=== PATIENT | female | born 1940 | race Caucasian/White ===

== ENCOUNTER → 2023-11-14 11:11 | Outpatient (REF) | payer MEDICARE, SELFPAY | LOC: HWRAD 11:11 | PROVIDERS: ATTENDING PHYSICIAN Nurse Practitioner | DX: R05.1 Acute cough (principal) | CPT/HCPCS: 71046 ==

== ENCOUNTER → 2023-11-20 17:13 | Outpatient (REF) | payer MEDICARE, SELFPAY | LOC: CLAB 17:13 | PROVIDERS: ATTENDING PHYSICIAN Specialist | DX: N39.0 Urinary tract infection, site not specified (principal) | CPT/HCPCS: 87077; 87086; 87186 ==

== ENCOUNTER 2024-05-13 12:39 | Emergency (ER) | payer MEDICARE, SELFPAY ==
[2024-05-13] VITALS (7 sets, daily range): BP systolic 122–144; BP diastolic 65–85; BMI 27.7
[2024-05-13 14:10] LABS: % Basophils 0.2 % (0-2); % Immature Granulocytes 0.8 % (0-0.5); Absolute Immature Granulocytes 0.1 10^3/uL (0-0.05); Absolute Lymphocytes 1.4 10^3/uL (1.2-3.4); Absolute Monocytes 2.1 10^3/uL (0.1-0.6); Absolute Neutrophils 13.6 10^3/uL (1.4-6.5); Hemoglobin 12.7 g/dL (12.0-16.0); Mean Corp Hgb Conc. 35.3 g/dL (33.0-37.0); Mean Corpuscular Hgb 33.9 pg (27.0-31.0); Mean Platelet Volume 10.2 fL (7.4-10.4); Nucleated Red Blood Cells % 0 %; Platelet Count 240 10^3/uL (130-400); Red Blood Cell Count 3.75 10^6/uL (4.20-5.40); Red Cell Dist. Width 13.7 % (11.5-14.5); White Blood Cell Count 17.2 10^3/uL (4.8-10.8)
[2024-05-13 14:38] LABS: ALT (SGPT) 14 U/L (0-35); AST (SGOT) 23 U/L (14-36); Albumin 3.6 g/dl (3.5-5.0); Alkaline Phosphatase 65 U/L (38-126); Blood Urea Nitrogen 12 mg/dl (7-17); Calcium 8.7 mg/dl (8.4-10.2); Carbon Dioxide 25 mmol/L (22-30); Chloride 102 mmol/L (98-107); Estimated Creatinine Clearance 34 ml/min; Glucose 114 mg/dl (70-99); Potassium 3.9 mmol/L (3.5-5.1); Sodium 134 mmol/L (135-145); Total Bilirubin 1.4 mg/dl (0.2-1.3); Total Protein 6.2 g/dl (6.3-8.2); eGFR 55.55
[2024-05-13 14:39] LABS: Lactic Acid 1.5 mmol/L (0.7-2.0)
[2024-05-13 14:46] LABS: Troponin I < 0.012 ng/ml
[2024-05-13 15:03] LABS: Urine Albumin 1+ (Neg - Trace); Urine Bilirubin Negative (Negative); Urine Character Slightly Cloudy (Clear); Urine Color Yellow; Urine Glucose Negative (Negative); Urine Ketone Trace (Negative); Urine Leukocyte 2+ (Negative); Urine Nitrite Positive (Negative); Urine Occult Blood 3+ (Negative); Urine Specific Gravity 1.015 (<1.030); Urine Urobilinogen Negative (Neg - 1+)
[2024-05-13 15:11] LABS: Urine Bacteria Many (Negative); Urine White Cell 40-50 /HPF (0-5)
[2024-05-13 15:26] LABS: COVID-19 Antigen Negative (Negative)
--- NOTE | 2024-05-13 15:37 | ED.GENMED ---
History of Present Illness
General
Chief Complaint: Urinary Symptoms
Source: patient
Exam Limitations: none
Time Seen by Provider: 05/13/24 14:07
Nursing documentation reviewed up to this point in time: agreed with
History of Present Illness
History of Present Illness:
84-year-old female past medical history of previous PE currently on Xarelto, IBS presenting to the emergency department with concerns of initially urinary symptoms 3 to 4 days ago and urinary frequency now feeling body aches nausea and mild
headache. Also felt feverish and chills today. Symptoms feel similar to previous UTIs.
Past History
Past History
ED Past Medical History: Arrthythmia, GERD and Other (Factor IV Leiden deficiency, DVT, PE, ED, diverticulosis, IBS)
ED Past Surgical History: Appendectomy, Gynecological, Orthopedic, Tonsilectomy and Other
Social History
Alcohol: Daily
Review of Systems
Review of Systems
Allergies reviewed?: Yes
All Other Systems: ROS reviewed and negative except as documented in HPI and ROS
Phy Exam
Physical Exam
Physical Exam:
GENERAL: Alert , in no apparent distress
EYE: pupils equal and reactive
NECK: Supple, no significant adenopathy.
ENT: o/p clr, mmm.
CARDIAC: Regular rate and rhythm .
LUNGS: Clear breath sounds bilaterally, no acute respiratory distress, no wheezes/rales/rhonchi
ABDOMEN: Mild pain to the suprapubic region otherwise soft, without focal tenderness, no r/g, no cvat
NEUROLOGICAL: Alert and oriented, no focal neuro deficits
SKIN: Warm and dry, skin intact.
MUSCULOSKELETAL: No edema, well perfused.
PSYCH: Normal and appropriate interaction.
Course
Orders/Labs/Results
Orders:
Orders
05/13/24 13:49
Electrocardiogram (*1) Urgent
Reason for Study: Chest Pain
EKG- Treatment ONCE
05/13/24 13:58
Complete Blood Count/With Diff Urgent
Comprehensive Metabolic Panel Urgent
Lactic Acid Q4H
Comment: ON ICE, CANCEL 2ND ORDER IF FIRST LACTIC ACID LEVEL <2
Troponin I Urgent
05/13/24 14:53
COVID-19 Antigen Urgent
Source: Nasal Swab
Urinalysis Reflex To Culture Urgent
Date Specimen was Collected: 05/13/24
Time Specimen was Collected: 13:38
Urine Microscopic Reflex Cult Urgent
Urine Culture Urgent
TREY Source: U
Specimen Description:
Obtained by: Random
Date Specimen was Collected: 05/13/24
Time Specimen was Collected: 13:38
05/13/24 15:02
Acetaminophen [Tylenol] 1,000 mg PO NOW STA
05/13/24 15:18
CT Abd/pel Without Iv Or Oral Urgent
Comment:
Reason For Exam: flank pain, uti, hx of stones
CefTRIAXone [Rocephin] 2,000 mg IV NOW STA
05/13/24 15:36
Sterile Water [Sterile Water For Injection] 20 ml .ROUTE .STK-MED
Abnormal Lab Results
05/13/24 05/13/24
13:58 14:53
WBC 17.2 H 10^3/uL
(4.8-10.8)
RBC 3.75 L 10^6/uL
(4.20-5.40)
Hct 36.0 L %
(37.0-47.0)
MCH 33.9 H pg
(27.0-31.0)
Abs Immat Gran (auto) 0.1 H 10^3/uL
(0-0.05)
Absolute Neuts (auto) 13.6 H 10^3/uL
(1.4-6.5)
Absolute Monos (auto) 2.1 H 10^3/uL
(0.1-0.6)
Immature Gran % 0.8 H %
(0-0.5)
Neutrophils % 79.0 H %
(42.2-75.2)
Lymphocytes % 8.0 L %
(20.5-51.1)
Monocytes % 12.0 H %
(1.7-9.3)
Sodium 134 L mmol/L
(135-145)
Glucose 114 H mg/dl
(70-99)
Total Bilirubin 1.4 H mg/dl
(0.2-1.3)
Total Protein 6.2 L g/dl
(6.3-8.2)
Urine Ketones Trace A
(Negative)
Ur Occult Blood Reflex 3+ A
(Negative)
Urine Nitrite (Reflex) Positive A
(Negative)
Leukocyte Esterase Rfl 2+ A
(Negative)
Urine RBC 7-10 A /HPF
(0-2)
Urine WBC (Reflex) 40-50 A /HPF
(0-5)
Urine Bacteria (Reflex) Many A
(Negative)
Urine Albumin (Reflex) 1+ A
(Neg - Trace)
05/13/24 13:58
05/13/24 13:58
Vital Signs
Initial and Last Documented VS:
Initial Vital Signs
Temp Pulse Resp BP Pulse Ox
102.9 F H 87 16 135/81 98
05/13/24 12:49 05/13/24 12:49 05/13/24 12:49 05/13/24 12:49 05/13/24 12:49
Last Documented Vital Signs
Temp Pulse Resp BP Pulse Ox
102.9 F H 87 18 144/65 98
05/13/24 12:49 05/13/24 14:30 05/13/24 14:30 05/13/24 14:00 05/13/24 14:30
MDM/Problems Addressed
MDM/Problems Addressed:
84-year-old male presenting to the emergency department today with concerns of initial urinary symptoms with frequency urgency and burning with progression to nausea headache and fever today. On arrival patient febrile to 102.9 otherwise vital
signs are normal. White count of 17.2. Lactic acid is not elevated. Urinalysis consistent with UTI started on IV antibiotics. Relief of patient's fever no fever at this time. Patient claims she is feels much better after treatment she was
watched here for multiple hours. 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 This was explained to the
patient. Initial recommendation for admission to the hospital. Patient claims that she felt much better would like to go home reservations about this were discussed to the patient. She demonstrated understanding of this otherwise at this point
patient is afebrile with normal vital signs no evidence of sepsis at this point claims to have very minimal symptoms at this time patient will be prescribed outpatient antibiotics advised for close follow-up with urology and given strict strict
return precautions for any worsening.
*Critical Care Note
Total Time (30-74mins, 75-104mins- exclusive of procedures): Not Applicable
ED Attending Note
-
Portions of this chart may have been created with voice recognition software.� Occasional wrong word or��sound alike� substitutions may have occurred due to the inherent limitations of voice recognition software.
Discharge Plan
Departure
Patient Disposition: Home (Routine Discharge)
Date of Disposition: 05/13/24
Time of Disposition: 17:45
Patient with high blood pressure during this ER visit?: No
Condition: Good
Covid-19: Not Applicable
Discharge Problem:
Urinary tract infection
Instructions: Urinary Tract Infection, Adult (DC)
Prescriptions:
New
cefpodoxime 200 mg tablet
200 mg PO BID 14 Days Qty: 28 0RF
No Action
amiodarone 200 mg Tablet
200 mg PO DAILY
metoprolol succinate [Toprol XL] 50 mg Tablet Extended Release 24 Hr
50 mg PO DAILY
Xarelto 20 mg Tablet
20 mg PO Q48H@1800
Referrals:
Martha Guthrie CRNP [Family Provider] -
Activity Restrictions/Additional Instructions:
You came to the emergency department today and were found to have a urinary tract infection. Here you had an elevated white count and you had some chronic findings on your CT scan. You were given an IV dose of antibiotics. Please continue taking
the antibiotics prescribed twice daily over the next 14 days and follow-up with urology within 1 week. Please immediately return to the emergency department for any worsening or progressive symptoms.
Interventions
Interventions:
*Risk Screen - Suicide Last Done: 05/13/24 12:49
*General Assessment Last Done: 05/13/24 12:49
*Neglect/Abuse Screening Last Done: 05/13/24 12:49
ED- Fall Risk Assessment Last Done: 05/13/24 14:04
*ED COVID-19 Vaccine History Last Done: 05/13/24 13:47
ED-Female Genitourinary Assessment Last Done: 05/13/24 14:04
Discharge Date and Time
Print Language: ROMANSH
[2024-05-13] MEDS: ROCEPHIN 2000 MG IV (15:38)
[2024-05-13] MEDS: TYLENOL 1000 MG PO (15:38)
== END 2024-05-13 18:34 | disposition home or self-care (01) ==
LOC: EMR 12:39
PROVIDERS: Physician Assistant; Student in an Organized Health Care Education/Training Program; EMERGENCY PHYSICIAN Emergency Medicine; FAMILY PHYSICIAN Nurse Practitioner
DX: N39.0 Urinary tract infection, site not specified (principal); R11.0 Nausea; R35.0 Frequency of micturition; K21.9 Gastro-esophageal reflux disease without esophagitis; K58.9 Irritable bowel syndrome, unspecified; Z79.01 Long term (current) use of anticoagulants; Z86.718 Personal history of other venous thrombosis and embolism; Z87.440 Personal history of urinary (tract) infections; Z90.49 Acquired absence of other specified parts of digestive tract
CPT/HCPCS: 99284; 96374; 74176; 80053; 81003; 81015; 83605; 84484; 85025; 87077; 87086; 87186; 87811; 93005

== ENCOUNTER → 2024-05-26 10:04 | Outpatient (REF) | payer MEDICARE, SELFPAY | LOC: HWRAD 10:04 | PROVIDERS: ATTENDING PHYSICIAN Nurse Practitioner | DX: R06.02 Shortness of breath (principal) | CPT/HCPCS: 71046 ==

== ENCOUNTER 2024-08-08 09:58 | Emergency (ER) | payer MEDICARE, SELFPAY ==
[2024-08-08 10:26] VITALS: BP 200/93
--- NOTE | 2024-08-12 12:30 | ED.GENMED ---
History of Present Illness
General
Chief Complaint: Musculo-Skeletal Complaint
Time Seen by Provider: 08/08/24 11:58
History of Present Illness
History of Present Illness:
TIME OF INITIAL ENCOUNTER: 10:30 AM, August 08, 2024
HPI:
The patient presents to the ER with rather severe left shoulder pain. She states that she has 'no rotator cuff' on the left side. It was recommended that she have a reverse shoulder surgery but she had declined. She thought that maybe she
dislocated her left shoulder.
EXAM:
GENERAL: Well appearing but in mild distress related to pain at the left shoulder, blood pressure noted to be elevated however she is asymptomatic
HEENT: Moist oral mucosa
NEUROLOGIC: Excellent strength all extremities, no obvious coordination deficits
PSYCHIATRIC: Appropriate mental status, normal insight and judgement
EXTREMITIES: There is some decreased active range of motion at the left shoulder however she is able to abduct at the left shoulder, there is no clinical evidence for dislocation, there is no significant bony tenderness
SKIN: No rash, no lesions
NUMBER AND COMPLEXITY OF PROBLEMS ADDRESSED AT THE ENCOUNTER
� Chronic conditions affecting care: DVT/PE, GERD
� Acute Exacerbation and/or Progression of Chronic Illness: This is an acute problem but is had rotator cuff injury in the past
� Differential Diagnosis includes: Rotator cuff pathology, shoulder fracture very unlikely, shoulder dislocation very unlikely
AMOUNT AND/OR COMPLEXITY OF DATA TO BE REVIEWED AND ANALYZED
� I performed an independent evaluation of and my interpretation is:
EKG:
CT:
X-rays: X-ray of the left shoulder reviewed and I agree with radiologist interpretation that there is no fracture or dislocation
Laboratory Studies:
Other:
� Review of other/old records: The patient was seen here in 2019 with a head injury
� Clinical information was obtained by an independent historian: Spoke to at bedside
� Prescriptions/Medications Considered but not given:
� Further testing considered but not performed:
RISK OF COMPLICATIONS AND/OR MORBIDITY OR MORTALITY OF PATIENT MANAGEMENT
� Social determinants of health affecting care: Lives at home
� Discussion with other providers:
� Escalation of care including admission/observation vs risk of discharge considered: X-rays reviewed. No significant acute abnormality. She is to follow-up with orthopedics.
ANY OTHER UPDATES:
Past History
Past History
ED Past Medical History: Arrthythmia, GERD and Other (Factor IV Leiden deficiency, DVT, PE, ED, diverticulosis, IBS)
ED Past Surgical History: Appendectomy, Gynecological, Orthopedic, Tonsilectomy and Other
Social History
Tobacco: Non-smoker
Alcohol: Daily
Drug: None
Living: alone
Employment: Retired
Phy Exam
Physical Exam
Physical Exam:
See HPI
Course
Orders/Labs/Results
Orders:
Orders
08/08/24 10:23
Shoulder, Left, Trauma CR [CR Shoulder, Trauma - Left] Urgent
Comment:
Reason For Exam: pain
08/08/24 12:25
Sling Left-Treatment ONCE
Vital Signs
Initial and Last Documented VS:
Initial Vital Signs
Temp Pulse Resp Pulse Ox
98.4 F 99 18 98
08/08/24 10:20 08/08/24 10:20 08/08/24 10:20 08/08/24 10:20
Last Documented Vital Signs
Temp Pulse Resp BP Pulse Ox
98.4 F 99 18 200/93 98
08/08/24 10:20 08/08/24 10:20 08/08/24 10:20 08/08/24 10:26 08/08/24 10:20
*Critical Care Note
Total Time (30-74mins, 75-104mins- exclusive of procedures): Not Applicable
ED Attending Note
-
Portions of this chart may have been created with voice recognition software.� Occasional wrong word or��sound alike� substitutions may have occurred due to the inherent limitations of voice recognition software.
Discharge Plan
Departure
Patient Disposition: Home (Routine Discharge)
Date of Disposition: 08/08/24
Time of Disposition: 12:24
Patient with high blood pressure during this ER visit?: Yes
Discharge Problem:
Rotator cuff arthropathy of left shoulder
Instructions: Rotator Cuff Tendinitis Strengthening Exercises, BLOOD PRESSURE
Prescriptions:
No Action
amiodarone 200 mg Tablet
200 mg PO DAILY
metoprolol succinate [Toprol XL] 50 mg Tablet Extended Release 24 Hr
50 mg PO DAILY
Xarelto 20 mg Tablet
20 mg PO Q48H@1800
cefpodoxime 200 mg tablet
200 mg PO BID 14 Days Qty: 28 0RF
enalapril maleate [Vasotec] 5 mg tablet
5 mg PO DAILY Qty: 30 2RF
Referrals:
Sebastian Hernandez MD [Active] - Follow up in 2-3 days
Martha Guthrie CRNP [Family Provider] -
Activity Restrictions/Additional Instructions:
Continue Tylenol for pain. Follow-up with Dr. Hernandez for further recommendations. Use sling for pain as well. There is no sign of dislocation and no sign of fracture.
Interventions
Interventions:
*Risk Screen - Suicide Last Done: 08/08/24 10:20
*General Assessment Last Done: 08/08/24 10:20
*Neglect/Abuse Screening Last Done: 08/08/24 10:20
*Nursing Disposition Last Done: 08/08/24 12:53
ED-Musculoskeletal Assessment Last Done: 08/08/24 11:59
Discharge Date and Time
Discharge Date/Time: 08/08/24 12:54
Print Language: IRISH
== END 2024-08-08 12:54 | disposition home or self-care (01) ==
LOC: EMR 09:58
PROVIDERS: EMERGENCY PHYSICIAN Emergency Medicine; FAMILY PHYSICIAN Nurse Practitioner
DX: M12.512 Traumatic arthropathy, left shoulder (principal); K21.9 Gastro-esophageal reflux disease without esophagitis; D68.9 Coagulation defect, unspecified; K58.9 Irritable bowel syndrome, unspecified; Z86.718 Personal history of other venous thrombosis and embolism; Z90.49 Acquired absence of other specified parts of digestive tract
CPT/HCPCS: 99283; 73030

== ENCOUNTER 2024-08-10 05:38 | Emergency (ER) | payer MEDICARE, SELFPAY ==
[2024-08-10] VITALS (7 sets, daily range): BP systolic 150–173; BP diastolic 65–95
--- NOTE | 2024-08-10 06:40 | ED.GENMED ---
Addendum entered and electronically signed by Rivera Leonard DO 08/10/24 09:46:
Update labs noted CTs noted proBNP noted patient lying flat asymptomatic blood pressure is 170s systolic over 80s heart rate in the 60s she is on amiodarone 200 metoprolol 50 will not increase either those give a dose hydralazine here and then
discharged prescription for lisinopril 5
Original Note:
History of Present Illness
General
Chief Complaint: Blood Pressure Problem
Source: patient, records and family
Exam Limitations: none
Time Seen by Provider: 08/10/24 06:08
Nursing documentation reviewed up to this point in time: agreed with except (Patient denies headache to me he told triage nurse that she had a headache)
History of Present Illness
History of Present Illness:
84-year-old female multiple chronic medical conditions, most notably A-fib on metoprolol amiodarone and Xarelto seen in the ER a week or so ago for left shoulder pain thought to be related to lack of a rotator cuff there is crunching in her
shoulder, that time her blood pressure was elevated, told to follow-up with her PCP she did over the phone took her blood pressure frequently's morning was 210/115 patient states she had no pain came to the ER for evaluation here blood pressures
improved does have pain with range of motion of her shoulder in talking to her she had a fall few weeks ago did strike her head with bruising, had some neck pain which is chronic for her she had a C2 fracture in 2014 seen at [place] by Dr. Doe, she
took her medications yesterday afternoon around 5 PM, she says some of lower extremity edema and shortness of breath, states she gets short of breath when she walks denies any chest pain
Past History
Past History
ED Past Medical History: Arrthythmia, GERD and Other (Factor IV Leiden deficiency, DVT, PE, ED, diverticulosis, IBS)
ED Past Surgical History: Appendectomy, Gynecological, Orthopedic, Tonsilectomy and Other
Social History
Tobacco: Non-smoker
Alcohol: Daily
Drug: None
Living: alone
Employment: Retired
Review of Systems
Review of Systems
All Other Systems: Not applicable
Constitutional: Denies fever or fatigue
EENT: Reports no symptoms
Respiratory: Reports trouble breathing; Denies cough
Cardiac: Reports no symptoms
ABD/GI: Reports no symptoms
Musculoskeletal: Reports joint pain
Skin: Reports no symptoms
Neurological: Reports headache (Denies to me but told triage nurse she has a headache)
Endocrine: Reports no symptoms
Hematologic/Lymphatic: Reports no symptoms
Phy Exam
Physical Exam
Physical Exam:
Physical Exam
General: 84-year-old female nontoxic
Neck: Mild paraspinal tenderness
Heart: Regular
Lungs: Faint bibasilar prior
Abdomen: Nontender
Neuro: alert and oriented. no focal neurological deficits
Skin: no rash
Psychiatric: cooperative
Extremities: Trace edema no calf pain positive pain with range of motion of the left shoulder
Course
Orders/Labs/Results
Orders:
Orders
08/10/24 06:35
Electrocardiogram (*1) Urgent
Reason for Study: Other
Other Reason for Exam: trauma
CT Cervical Spine W/o Iv Contr Urgent
Comment:
Reason For Exam: fall prior c2 fx
CT Head W/o Iv Contrast Urgent
Comment:
Reason For Exam: fall headache xartelto
Cardiac Monitoring- Treatment ONCE
EKG- Treatment ONCE
Complete Blood Count/With Diff Urgent
Comprehensive Metabolic Panel Urgent
08/10/24 06:36
Troponin I Urgent
Acetaminophen [Tylenol] 650 mg PO NOW STA
CR Chest - 2 Views Urgent
Comment:
Reason For Exam: sob
Vital Signs
Initial and Last Documented VS:
Initial Vital Signs
Temp Pulse Resp BP Pulse Ox
97.8 F 68 20 150/94 99
08/10/24 05:42 08/10/24 05:42 08/10/24 05:42 08/10/24 05:42 08/10/24 05:42
Last Documented Vital Signs
Temp Pulse Resp BP Pulse Ox
97.8 F 68 20 156/80 98
08/10/24 05:42 08/10/24 05:42 08/10/24 05:42 08/10/24 06:27 08/10/24 06:27
MDM/Problems Addressed
Differential Diagnosis Includes:
Primary pain from rotator cuff injury accelerated hypertension, heart failure, subacute presentation after fall close head injury prior C2 fracture
MDM/Problems Addressed:
Elevated blood pressure shoulder pain anticoagulated trauma
Chronic conditions affecting care: HTN, Arrhythmia and Other (C-spine injury)
Acute Exacerbation and/or Progression of Chronic Illness: HTN, Arrhythmia and Other (C-spine injury)
*Radiology
Radiology exam reviewed: radiology read reviewed
*Pulse Oximetry
Patient hypoxic: no
*EKG
Interpreted by ED Provider?: Yes
Interpretation: abnormal
Comparison EKG: no comparison EKG present
Heart Rate: 78
Rate: normal
Rhythm: sinus
Ischemia: non-specific ST changes
*Agency Development Manager Interpretation
Rate: normal
Interpretation: normal
Heart Rate: 78
Rhythm: sinus
*Critical Care Note
Total Time (30-74mins, 75-104mins- exclusive of procedures): Not Applicable
Data Reviewed
Source: patient
ED Attending Note
-
Portions of this chart may have been created with voice recognition software.� Occasional wrong word or��sound alike� substitutions may have occurred due to the inherent limitations of voice recognition software.
Discharge Plan
Departure
Prescriptions:
No Action
amiodarone 200 mg Tablet
200 mg PO DAILY
metoprolol succinate [Toprol XL] 50 mg Tablet Extended Release 24 Hr
50 mg PO DAILY
Xarelto 20 mg Tablet
20 mg PO Q48H@1800
cefpodoxime 200 mg tablet
200 mg PO BID 14 Days Qty: 28 0RF
Referrals:
Martha Guthrie CRNP [Family Provider] -
Interventions
Interventions:
*Risk Screen - Suicide Last Done: 08/10/24 05:42
*General Assessment Last Done: 08/10/24 05:42
*Neglect/Abuse Screening Last Done: 08/10/24 05:42
ED- Fall Risk Assessment Last Done: 08/10/24 05:42
*ED COVID-19 Vaccine History Last Done: 08/10/24 05:42
ED- Cardiac Assessment Last Done: 08/10/24 06:27
ED- Neurological Assessment Last Done: 08/10/24 06:27
ED- Pulmonary Assessment Last Done: 08/10/24 06:27
Discharge Date and Time
Print Language: GIBRALTARIAN
[2024-08-10] MEDS: TYLENOL 650 MG PO (07:29)
[2024-08-10 07:50] LABS: % Basophils 0.5 % (0-2); % Immature Granulocytes 0.5 % (0-0.5); % Monocytes 9.9 % (1.7-9.3); % Neutrophils 64.1 % (42.2-75.2); Absolute Eosinophils 0.1 10^3/uL (0-0.7); Absolute Lymphocytes 1.9 10^3/uL (1.2-3.4); Absolute Monocytes 0.8 10^3/uL (0.1-0.6); Absolute Neutrophils 5.2 10^3/uL (1.4-6.5); Hematocrit 37.9 % (37.0-47.0); Hemoglobin 13.1 g/dL (12.0-16.0); Mean Corp Hgb Conc. 34.6 g/dL (33.0-37.0); Mean Corpuscular Hgb 32.8 pg (27.0-31.0); Mean Platelet Volume 10.5 fL (7.4-10.4); Nucleated Red Blood Cells % 0 %; Platelet Count 233 10^3/uL (130-400); Red Blood Cell Count 3.99 10^6/uL (4.20-5.40); Red Cell Dist. Width 13.6 % (11.5-14.5); White Blood Cell Count 8.1 10^3/uL (4.8-10.8)
[2024-08-10 08:10] LABS: Blood Urea Nitrogen 16 mg/dl (7-17); Calcium 8.9 mg/dl (8.4-10.2); Carbon Dioxide 25 mmol/L (22-30); Chloride 107 mmol/L (98-107); Glucose 91 mg/dl (70-99); Sodium 141 mmol/L (135-145); eGFR > 60.00
[2024-08-10 08:17] LABS: Troponin I < 0.012 ng/ml
[2024-08-10 09:20] LABS: NT-proBNP 1620 pg/ml
--- NOTE | 2024-08-10 09:24 | ED.GENMED ---
History of Present Illness
General
Chief Complaint: Blood Pressure Problem
Time Seen by Provider: 08/10/24 06:08
Past History
Past History
ED Past Medical History: Arrthythmia, GERD and Other (Factor IV Leiden deficiency, DVT, PE, ED, diverticulosis, IBS)
ED Past Surgical History: Appendectomy, Gynecological, Orthopedic, Tonsilectomy and Other
Social History
Tobacco: Non-smoker
Alcohol: Daily
Drug: None
Living: alone
Employment: Retired
Course
Orders/Labs/Results
Orders:
Orders
08/10/24 06:35
Electrocardiogram (*1) Urgent
Reason for Study: Other
Other Reason for Exam: trauma
CT Cervical Spine W/o Iv Contr Urgent
Comment:
Reason For Exam: fall prior c2 fx
CT Head W/o Iv Contrast Urgent
Comment:
Reason For Exam: fall headache xartelto
Cardiac Monitoring- Treatment ONCE
EKG- Treatment ONCE
08/10/24 06:36
Acetaminophen [Tylenol] 650 mg PO NOW STA
CR Chest - 2 Views Urgent
Comment:
Reason For Exam: sob
08/10/24 07:32
Basic Metabolic Panel Urgent
Complete Blood Count/With Diff Urgent
NT-proBNP Urgent
Comment: ADD ON
Troponin I Urgent
08/10/24 08:15
Add On- LAB Urgent
Tests Added?: pBNP
08/10/24 08:37
Add On- LAB Urgent
Tests Added?: pBNP
08/10/24 09:42
HydrALAZINE [Apresoline] 5 mg IV NOW STA
Abnormal Lab Results
08/10/24
07:32
RBC 3.99 L 10^6/uL
(4.20-5.40)
MCH 32.8 H pg
(27.0-31.0)
MPV 10.5 H fL
(7.4-10.4)
Absolute Monos (auto) 0.8 H 10^3/uL
(0.1-0.6)
Monocytes % 9.9 H %
(1.7-9.3)
08/10/24 07:32
08/10/24 07:32
Vital Signs
Initial and Last Documented VS:
Initial Vital Signs
Temp Pulse Resp BP Pulse Ox
97.8 F 68 20 150/94 99
08/10/24 05:42 08/10/24 05:42 08/10/24 05:42 08/10/24 05:42 08/10/24 05:42
Last Documented Vital Signs
Temp Pulse Resp BP Pulse Ox
97.8 F 67 16 173/78 96
08/10/24 05:42 08/10/24 09:00 08/10/24 09:00 08/10/24 09:00 08/10/24 09:00
Update Note
Update Note:
924 update chest x-ray noted formal report pending proBNP noted, blood pressure noted
Update systolic blood pressure still up a bit patient appears comfortable heart rate in the 60s to 70s will not push up her beta-christiano nor her amnio will add a low-dose of an CARO
ED Attending Note
-
Portions of this chart may have been created with voice recognition software.� Occasional wrong word or��sound alike� substitutions may have occurred due to the inherent limitations of voice recognition software.
Discharge Plan
Departure
Patient Disposition: Home (Routine Discharge)
Date of Disposition: 08/10/24
Time of Disposition: 09:43
Patient with high blood pressure during this ER visit?: No
Condition: Good
Discharge Problem:
BP (high blood pressure)
Instructions: Chest Pain DCA Follow Up, *DCA Heart Failure Instructions, BLOOD PRESSURE
Prescriptions:
New
enalapril maleate [Vasotec] 5 mg tablet
5 mg PO DAILY Qty: 30 2RF
No Action
amiodarone 200 mg Tablet
200 mg PO DAILY
metoprolol succinate [Toprol XL] 50 mg Tablet Extended Release 24 Hr
50 mg PO DAILY
Xarelto 20 mg Tablet
20 mg PO Q48H@1800
cefpodoxime 200 mg tablet
200 mg PO BID 14 Days Qty: 28 0RF
Referrals:
Kai Brito MD [Active] - Next open appointment
Martha Guthrie CRNP [Family Provider] -
Activity Restrictions/Additional Instructions:
Follow-up with your rn production, start enalapril 5 mg a day
Interventions
Interventions:
*Risk Screen - Suicide Last Done: 08/10/24 05:42
*General Assessment Last Done: 08/10/24 05:42
*Neglect/Abuse Screening Last Done: 08/10/24 05:42
ED- Fall Risk Assessment Last Done: 08/10/24 05:42
*ED COVID-19 Vaccine History Last Done: 08/10/24 05:42
ED- Cardiac Assessment Last Done: 08/10/24 06:27
ED- Neurological Assessment Last Done: 08/10/24 06:27
ED- Pulmonary Assessment Last Done: 08/10/24 06:27
Discharge Date and Time
Print Language: PASHTO
[2024-08-10] MEDS: APRESOLINE 5 MG IV (10:14)
== END 2024-08-10 11:26 | disposition home or self-care (01) ==
LOC: EMR 05:38
PROVIDERS: EMERGENCY PHYSICIAN Emergency Medicine; FAMILY PHYSICIAN Nurse Practitioner
DX: I10 Essential (primary) hypertension (principal); I48.91 Unspecified atrial fibrillation; K21.9 Gastro-esophageal reflux disease without esophagitis; Z86.718 Personal history of other venous thrombosis and embolism; Z90.49 Acquired absence of other specified parts of digestive tract; Z79.899 Other long term (current) drug therapy
CPT/HCPCS: 96374; 99285; 70450; 71046; 72125; 80048; 83880; 84484; 85025; 93005

== ENCOUNTER 2024-10-08 11:49 | Emergency (ER) | payer MEDICARE, SELFPAY ==
[2024-10-08] VITALS (8 sets, daily range): BP systolic 158–190; BP diastolic 73–120; BMI 24.1
--- NOTE | 2024-10-08 12:10 | ED.GENMED ---
ED Provider Triage
<Tony Yin PA-C - Last Filed: 10/08/24 12:12>
-
Patient seen by provider in Triage?: Seen in Triage
84 yo female presents for evaluation of intractable shaking with nausea and h/a beginning this AM. Denies CP, coughing, vomiting or diarrhea. Denies lower urinary tract voiding symptoms. No new meds.
Visibly tremulous at rest. No change with intention. No focality. Looks well overall.
Check infectious workup although these do not look like rigors
History of Present Illness
<Tony Yin PA-C - Last Filed: 10/08/24 12:12>
General
Chief Complaint: Blood Pressure Problem
Time Seen by Provider: 10/08/24 17:11
<Christina Virk PA-C - Last Filed: 10/08/24 22:22>
General
Source: patient
Exam Limitations: none
Nursing documentation reviewed up to this point in time: agreed with
History of Present Illness
History of Present Illness:
84 y/o M with h/o factor v leiden, dvt/pe on eliquis
htn with inc in her BP med just 2 days ago losartan from 50 to 100 for elevated bp 180/90s at home
here after she says that she started having shaking uncontrollably at 11 am that didn't feel like chills
it was her whole body
she arrived and still had symptoms for a 2 hours while waiting and then they stopped
she now has a minimal headache
she reported to triage she had nausea but not to me
she has missed some bp meds today like toprol and amio for her afib
she has not had sore throat, cough, runny nose, diarrhea, uti sxs, abdominal pain, back pain, weknss, numbness, vision changes, enck pain, chest pain
no recent trave
she did have cat scratch L arm that is healing and not red or tender
pt tells me she doesn't drink alcohol
Past History
<Tony Yin PA-C - Last Filed: 10/08/24 12:12>
Past History
ED Past Medical History: Arrthythmia, GERD and Other (Factor IV Leiden deficiency, DVT, PE, ED, diverticulosis, IBS)
ED Past Surgical History: Appendectomy, Gynecological, Orthopedic, Tonsilectomy and Other
Social History
Tobacco: Non-smoker
Alcohol: Daily
Drug: None
Living: alone
Employment: Retired
Review of Systems
<Christina Virk PA-C - Last Filed: 10/08/24 22:22>
Review of Systems
Allergies reviewed?: Yes
All Other Systems: Not applicable
Phy Exam
<Christina Virk PA-C - Last Filed: 10/08/24 22:22>
Physical Exam
Physical Exam:
GENERAL: Alert , in no apparent distress, no shaking chills
HEAD: NCAT
EYE: pupils equal and reactive, no nystagmus, no photophobia
NECK: Supple,full rom, nontender
ENT: o/p clr, mmm.
CARDIAC: Regular rate and rhythm . no edema
LUNGS: Clear breath sounds bilaterally, no acute respiratory distress, no wheezes/rales/rhonchi
ABDOMEN: Soft, without focal tenderness, no r/g, no cvat
NEUROLOGICAL: Alert and orientedx 4, cn intact, no facial asymmetry, 5/5 strength in UE/LE, sensation intact, romberg neg, ambulates without assistance slightly wider gait; no tremor, neg pronator drift
SKIN: Warm and dry, skin intact.
SCAB L FOREARM MIMIAL SURROUDING REDNESS, 1 CM, NO TENDENRESS, NO STREAKING ASHLEY, NO LYMPHANGITIS
MUSCULOSKELETAL: No edema, well perfused.
PSYCH: Normal and appropriate interaction.
RECTAL TEMP 98.2
Course
<Tony Yin PA-C - Last Filed: 10/08/24 12:12>
Orders/Labs/Results
Orders:
Orders
10/08/24 12:28
COVID-19 Antigen Urgent
Source: Nasal Swab
Complete Blood Count/With Diff Urgent
Comprehensive Metabolic Panel Urgent
Creatine Phosphokinase Urgent
Lactic Acid Urgent
TSH Reflex To Free T4 Urgent
Comment: ADDON
Blood Culture Urgent
TREY Source: Blood/Venous
Specimen Description:
Influenza A+B Rapid Molecular Urgent
TREY Source: Nasal Swab
Specimen Description:
10/08/24 17:03
IV Insert/Care/Rem.- Treatment PRN
10/08/24 17:33
Blood Culture Urgent
TREY Source: Blood/Venous
Specimen Description:
10/08/24 18:09
0.9% Sodium Chloride 1000 ml [Nss] 1,000 ml IV BOLUS
Metoprolol Xl [Toprol Xl] 50 mg PO NOW STA
10/08/24 18:10
CR Chest - 2 Views Urgent
Comment:
Reason For Exam: RIGORS
10/08/24 18:22
Urinalysis Reflex To Culture Urgent
Date Specimen was Collected: 10/08/24
Time Specimen was Collected: 18:17
Urine Microscopic Reflex Cult Urgent
10/08/24 18:33
Add On- LAB Urgent
Tests Added?: cpk, tsh reflex t4
10/08/24 19:41
Lactic Acid Urgent
Abnormal Lab Results
10/08/24 10/08/24 10/08/24
12:28 18:22 19:41
MCV 99.1 H fL
(81.0-99.0)
MCH 33.5 H pg
(27.0-31.0)
Abs Immat Gran (auto) 0.1 H 10^3/uL
(0-0.05)
Absolute Neuts (auto) 6.6 H 10^3/uL
(1.4-6.5)
Immature Gran % 0.6 H %
(0-0.5)
Neutrophils % 76.8 H %
(42.2-75.2)
Lymphocytes % 14.6 L %
(20.5-51.1)
Carbon Dioxide 21 L mmol/L
(22-30)
Glucose 102 H mg/dl
(70-99)
Lactic Acid 2.9 H mmol/L 2.1 H mmol/L
(0.7-2.0) (0.7-2.0)
AST 38 H U/L
(14-36)
Urine Ketones 3+ A
(Negative)
Ur Occult Blood Reflex 1+ A
(Negative)
10/08/24 12:28
10/08/24 12:28
Vital Signs
Initial and Last Documented VS:
Initial Vital Signs
Temp Pulse Resp BP Pulse Ox
97.5 F 93 20 184/120 98
10/08/24 12:02 10/08/24 12:02 10/08/24 12:02 10/08/24 12:02 10/08/24 12:02
Last Documented Vital Signs
Temp Pulse Resp BP Pulse Ox
98.5 F 75 13 175/91 97
10/08/24 17:44 10/08/24 20:45 10/08/24 20:45 10/08/24 20:05 10/08/24 20:45
<Christina Virk PA-C - Last Filed: 10/08/24 22:22>
Orders/Labs/Results
Orders:
Orders
10/08/24 12:28
COVID-19 Antigen Urgent
Source: Nasal Swab
Complete Blood Count/With Diff Urgent
Comprehensive Metabolic Panel Urgent
Creatine Phosphokinase Urgent
Lactic Acid Urgent
TSH Reflex To Free T4 Urgent
Comment: ADDON
Blood Culture Urgent
TREY Source: Blood/Venous
Specimen Description:
Influenza A+B Rapid Molecular Urgent
TREY Source: Nasal Swab
Specimen Description:
10/08/24 17:03
IV Insert/Care/Rem.- Treatment PRN
10/08/24 17:33
Blood Culture Urgent
TREY Source: Blood/Venous
Specimen Description:
10/08/24 18:09
0.9% Sodium Chloride 1000 ml [Nss] 1,000 ml IV BOLUS
Metoprolol Xl [Toprol Xl] 50 mg PO NOW STA
10/08/24 18:10
CR Chest - 2 Views Urgent
Comment:
Reason For Exam: RIGORS
10/08/24 18:22
Urinalysis Reflex To Culture Urgent
Date Specimen was Collected: 10/08/24
Time Specimen was Collected: 18:17
Urine Microscopic Reflex Cult Urgent
10/08/24 18:33
Add On- LAB Urgent
Tests Added?: cpk, tsh reflex t4
10/08/24 19:41
Lactic Acid Urgent
Abnormal Lab Results
10/08/24 10/08/24 10/08/24
12:28 18:22 19:41
MCV 99.1 H fL
(81.0-99.0)
MCH 33.5 H pg
(27.0-31.0)
Abs Immat Gran (auto) 0.1 H 10^3/uL
(0-0.05)
Absolute Neuts (auto) 6.6 H 10^3/uL
(1.4-6.5)
Immature Gran % 0.6 H %
(0-0.5)
Neutrophils % 76.8 H %
(42.2-75.2)
Lymphocytes % 14.6 L %
(20.5-51.1)
Carbon Dioxide 21 L mmol/L
(22-30)
Glucose 102 H mg/dl
(70-99)
Lactic Acid 2.9 H mmol/L 2.1 H mmol/L
(0.7-2.0) (0.7-2.0)
AST 38 H U/L
(14-36)
Urine Ketones 3+ A
(Negative)
Ur Occult Blood Reflex 1+ A
(Negative)
10/08/24 12:28
10/08/24 12:28
Vital Signs
Initial and Last Documented VS:
Initial Vital Signs
Temp Pulse Resp BP Pulse Ox
97.5 F 93 20 184/120 98
10/08/24 12:02 10/08/24 12:02 10/08/24 12:02 10/08/24 12:02 10/08/24 12:02
Last Documented Vital Signs
Temp Pulse Resp BP Pulse Ox
98.5 F 75 13 175/91 97
10/08/24 17:44 10/08/24 20:45 10/08/24 20:45 10/08/24 20:05 10/08/24 20:45
<Mary Maxwell MD - Last Filed: 10/08/24 22:27>
Orders/Labs/Results
Orders:
Orders
10/08/24 12:28
COVID-19 Antigen Urgent
Source: Nasal Swab
Complete Blood Count/With Diff Urgent
Comprehensive Metabolic Panel Urgent
Creatine Phosphokinase Urgent
Lactic Acid Urgent
TSH Reflex To Free T4 Urgent
Comment: ADDON
Blood Culture Urgent
TREY Source: Blood/Venous
Specimen Description:
Influenza A+B Rapid Molecular Urgent
TREY Source: Nasal Swab
Specimen Description:
01/03/25 17:03
IV Insert/Care/Rem.- Treatment PRN
10/08/24 17:33
Blood Culture Urgent
TREY Source: Blood/Venous
Specimen Description:
10/08/24 18:09
0.9% Sodium Chloride 1000 ml [Nss] 1,000 ml IV BOLUS
Metoprolol Xl [Toprol Xl] 50 mg PO NOW STA
10/08/24 18:10
CR Chest - 2 Views Urgent
Comment:
Reason For Exam: RIGORS
10/08/24 18:22
Urinalysis Reflex To Culture Urgent
Date Specimen was Collected: 10/08/24
Time Specimen was Collected: 18:17
Urine Microscopic Reflex Cult Urgent
10/08/24 18:33
Add On- LAB Urgent
Tests Added?: cpk, tsh reflex t4
10/08/24 19:41
Lactic Acid Urgent
Abnormal Lab Results
10/08/24 10/08/24 10/08/24
12:28 18:22 19:41
MCV 99.1 H fL
(81.0-99.0)
MCH 33.5 H pg
(27.0-31.0)
Abs Immat Gran (auto) 0.1 H 10^3/uL
(0-0.05)
Absolute Neuts (auto) 6.6 H 10^3/uL
(1.4-6.5)
Immature Gran % 0.6 H %
(0-0.5)
Neutrophils % 76.8 H %
(42.2-75.2)
Lymphocytes % 14.6 L %
(20.5-51.1)
Carbon Dioxide 21 L mmol/L
(22-30)
Glucose 102 H mg/dl
(70-99)
Lactic Acid 2.9 H mmol/L 2.1 H mmol/L
(0.7-2.0) (0.7-2.0)
AST 38 H U/L
(14-36)
Urine Ketones 3+ A
(Negative)
Ur Occult Blood Reflex 1+ A
(Negative)
10/08/24 12:28
10/08/24 12:28
Vital Signs
Initial and Last Documented VS:
Initial Vital Signs
Temp Pulse Resp BP Pulse Ox
97.5 F 93 20 184/120 98
10/08/24 12:02 10/08/24 12:02 10/08/24 12:02 10/08/24 12:02 10/08/24 12:02
Last Documented Vital Signs
Temp Pulse Resp BP Pulse Ox
98.5 F 75 13 175/91 97
10/08/24 17:44 10/08/24 20:45 10/08/24 20:45 10/08/24 20:05 10/08/24 20:45
<Christina Virk PA-C - Last Filed: 10/08/24 22:22>
MDM/Problems Addressed
Differential Diagnosis Includes:
tremor, rigors, anxiety, withdrawal
MDM/Problems Addressed:
84 y/o F
sudden shakiness x 2 hours then resolved while here
pt says she was shaking unontrollably
just increased losartan dose from 50 o 100
has had elevated BP for some time
no signifiant neuro symptoms, minimal headache, no neck stiffness, no fver
well appearing
nontoxic
afebrile
wbc normal
LACTIC 2.9
chemistry unremarkable, minimal ast elevation 38
pt denies alcohol
ua with large blood but no RBC
CPK normal
no uti symptoms
no back pain
cxr indep reviewed, no signs of inection
d/w ed attending who saw her
i did see her gait looked a little off but she said this is how it looks when she has been sitting for awhile
she did walk for dr. maxwell and looked better
we thought about head ct but instead decided wasn't indicated
if blood cultulres are positive, pt will need to return
unclear cuase for her shaking
lactate clearing
d/c home
<Christina Vrik PA-C - Last Filed: 10/08/24 22:22>
*Critical Care Note
Total Time (30-74mins, 75-104mins- exclusive of procedures): Not Applicable
ED Attending Note
<Tony Yin PA-C - Last Filed: 10/08/24 12:12>
-
Portions of this chart may have been created with voice recognition software.� Occasional wrong word or��sound alike� substitutions may have occurred due to the inherent limitations of voice recognition software.
<Mary Maxwell MD - Last Filed: 10/08/24 22:27>
ED Attending Note
Patient seen and examined by attending physician: Yes
I performed the substantive portion of visit, reviewed & personally made and approve the management plan that is documented in note by myself or KAILEE.: Yes
ED Attending Note:
Patient appears well nontoxic. She has no elevated white blood cell count nor fever. Her urine shows no sign of infection. On exam, patient's heart sounds regular her lungs are clear. Patient states she feels comfortable going home and will
return with any fever or dizziness.
Discharge Plan
Departure
Patient Disposition: Home (Routine Discharge)
Date of Disposition: 10/08/24
Time of Disposition: 21:07
Patient with high blood pressure during this ER visit?: No
Condition: Fair
Covid-19: Not Applicable
Discharge Problem:
Tremor
Instructions: Tremor, Dehydration in adults - ED discharge instructions
Prescriptions:
No Action
amiodarone 200 mg Tablet
200 mg PO NOON
metoprolol succinate [Toprol XL] 50 mg Tablet Extended Release 24 Hr
50 mg PO NOON
Xarelto 20 mg Tablet
20 mg PO NOON
losartan 50 mg Tablet
100 mg PO NOON
loperamide [Imodium] 2 mg Capsule
2 mg PO Q6HPRN PRN (Reason: diarrhea)
acetaminophen [Tylenol Extra Strength] 500 mg Tablet
1,000 mg PO Q6HPRN PRN (Reason: mild pain)
Referrals:
Roby Epps MD [Family Provider] - Follow up in 2-3 days
Activity Restrictions/Additional Instructions:
YOU WERE DEHYDRATED TODAY
WE ARE NOT SURE THE CAUSE OF YOUR SHAKING
YOU HAD NO FEVER HERE AND NORMAL WHITE COUNT
WE SENT BLOOD CULTURES WHICH SHOULD RESULT IN THE NEXT 24-48 HOURS AND WE WILL CALL YOU IF YOU NEED TO RETURN
IN THE MEANTIME, CONTINUE YUOR MEDICATIONS
FOLLOW UP WITH YOUR DOCTOR THIS NEXT WEEK
RETURN FOR : PASSING OUT, FEVER, WEAKNESS, VOMITING, CHEST PAIN, SHORTNESS OF BREATH ETC
Interventions
Interventions:
*Risk Screen - Suicide Last Done: 10/08/24 17:40
*General Assessment Last Done: 10/08/24 17:40
*Neglect/Abuse Screening Last Done: 10/08/24 17:40
ED- Fall Risk Assessment Last Done: 10/08/24 17:40
*ED COVID-19 Vaccine History Last Done: 10/08/24 17:40
*Nursing Disposition Last Done: 10/08/24 21:24
ED- Cardiac Assessment Last Done: 10/08/24 17:44
ED- Neurological Assessment Last Done: 10/08/24 17:44
ED- Pulmonary Assessment Last Done: 10/08/24 17:46
Discharge Date and Time
Discharge Date/Time: 10/08/24 21:33
Print Language: PANAMANIAN
[2024-10-08 12:37] LABS: % Basophils 0.4 % (0-2); % Eosinophils 0.4 % (0-6); % Immature Granulocytes 0.6 % (0-0.5); % Lymphocytes 14.6 % (20.5-51.1); % Monocytes 7.2 % (1.7-9.3); % Neutrophils 76.8 % (42.2-75.2); Absolute Immature Granulocytes 0.1 10^3/uL (0-0.05); Absolute Lymphocytes 1.3 10^3/uL (1.2-3.4); Absolute Monocytes 0.6 10^3/uL (0.1-0.6); Absolute Neutrophils 6.6 10^3/uL (1.4-6.5); Hematocrit 42.6 % (37.0-47.0); Hemoglobin 14.4 g/dL (12.0-16.0); Mean Corp Hgb Conc. 33.8 g/dL (33.0-37.0); Mean Corpuscular Hgb 33.5 pg (27.0-31.0); Mean Corpuscular Volume 99.1 fL (81.0-99.0); Nucleated Red Blood Cells % 0 %; Platelet Count 254 10^3/uL (130-400); Red Cell Dist. Width 13.9 % (11.5-14.5); White Blood Cell Count 8.6 10^3/uL (4.8-10.8)
[2024-10-08 12:50] LABS: Lactic Acid 2.9 mmol/L (0.7-2.0)
[2024-10-08 12:53] LABS: COVID-19 Antigen Negative (Negative)
[2024-10-08 12:57] LABS: ALT (SGPT) 22 U/L (0-35); AST (SGOT) 38 U/L (14-36); Albumin 4.9 g/dl (3.5-5.0); Alkaline Phosphatase 80 U/L (38-126); Blood Urea Nitrogen 16 mg/dl (7-17); Calcium 9.5 mg/dl (8.4-10.2); Carbon Dioxide 21 mmol/L (22-30); Chloride 104 mmol/L (98-107); Glucose 102 mg/dl (70-99); Potassium 4.5 mmol/L (3.5-5.1); Sodium 141 mmol/L (135-145); Total Protein 7.8 g/dl (6.3-8.2); eGFR 55.55
--- NOTE | 2024-10-08 17:47 | EDRN ---
Pt informed urine spec needed w/receptacle placed in BR.
[2024-10-08] MEDS: NSS 1000 IV (18:19)
[2024-10-08 18:28] LABS: Urine Albumin Trace (Neg - Trace); Urine Bilirubin Negative (Negative); Urine Character Clear (Clear); Urine Color Yellow; Urine Glucose Negative (Negative); Urine Ketone 3+ (Negative); Urine Leukocyte Negative (Negative); Urine Nitrite Negative (Negative); Urine Occult Blood 1+ (Negative); Urine Specific Gravity 1.025 (<1.030); Urine Urobilinogen Negative (Neg - 1+)
[2024-10-08] MEDS: TOPROL XL 50 MG PO (18:28)
[2024-10-08 18:43] LABS: Urine Red Blood Cell 0-2 /HPF (0-2); Urine Squamous Cell >30 /LPF (Few); Urine White Cell 0-2 /HPF (0-5)
[2024-10-08 19:05] LABS: Creatine Phosphokinase 58 U/L (30-135)
[2024-10-08 19:46] LABS: TSH Reflex To Free T4 1.42 uIU/ml (0.47-4.68)
[2024-10-08 20:02] LABS: Lactic Acid 2.1 mmol/L (0.7-2.0)
== END 2024-10-08 21:33 | disposition home or self-care (01) ==
LOC: EMR 11:49
PROVIDERS: Physician Assistant; EMERGENCY PHYSICIAN Emergency Medicine; FAMILY PHYSICIAN Internal Medicine
DX: R25.1 Tremor, unspecified (principal); I10 Essential (primary) hypertension; Z11.52 Encounter for screening for COVID-19
CPT/HCPCS: 99284; 96360; 71046; 80053; 81003; 81015; 82550; 83605; 84443; 85025; 87040; 87502; 87811

== ENCOUNTER 2025-04-01 11:55 | Inpatient (IN) | payer MEDICARE, SELFPAY ==
[2025-04-01] VITALS (14 sets, daily range): BP systolic 94–190; BP diastolic 68–116; BMI 25.6
[2025-04-01] MEDS: DILAUDID 0.5 MG IV ×2 (06:39→10:10)
--- NOTE | 2025-04-01 06:40 | ED.GENMED ---
History of Present Illness
General
Chief Complaint: Musculo-Skeletal Complaint
Source: patient and spouse
Exam Limitations: none
Time Seen by Provider: 04/01/25 06:22
Nursing documentation reviewed up to this point in time: agreed with
History of Present Illness
History of Present Illness:
The patient is an 84-year-old female who comes in via ambulance for severe right knee pain after a fall that occurred at around 9 PM last night patient reports that she has chronic balance issues and was moving a fan last night, lost her balance,
and fell onto her bottom. Patient reports that she may have twisted her right knee on the way down because since the fall, she has had severe right knee pain and swelling. She did not hit her head. She denies any worsening neck pain or back pain
from her baseline. She denies weakness and numbness of the legs. Patient reports she generally has poor balance at baseline and gets around with a cane. Patient is on Eliquis chronically. She denies abdominal pain and chest pain. She denies
shortness of breath. Patient reports she was given fentanyl by paramedics but it barely helped with the pain. Patient reports increased frequency of urination but denies fevers and chills.
Past History
Past History
ED Past Medical History: Arrthythmia, GERD and Other (Factor IV Leiden deficiency, DVT, PE, ED, diverticulosis, IBS)
ED Past Surgical History: Appendectomy, Gynecological, Orthopedic, Tonsilectomy and Other
Social History
Tobacco: Non-smoker
Alcohol: Daily
Drug: None
Personal:
Living: with family
Employment: Retired
Family History
Family History: Other
Review of Systems
Review of Systems
Allergies reviewed?: Yes
All Other Systems: ROS reviewed and negative except as documented in HPI and ROS
Constitutional: Reports no symptoms
EENT: Reports no symptoms
Respiratory: Reports no symptoms
Cardiac: Reports no symptoms
ABD/GI: Reports no symptoms
: Reports no symptoms
Musculoskeletal: Reports joint pain, joint swelling and muscle pain
Skin: Reports other (Abrasion left hand)
Neurological: Reports no symptoms
Endocrine: Reports no symptoms
Hematologic/Lymphatic: Reports no symptoms
Psychiatric: Reports no symptoms
Phy Exam
Physical Exam
Physical Exam:
Physical Exam
General: no apparent distress, atraumatic appearing face and head. No areas of scalp contusion or tenderness
Neck: supple. Nontender C-spine
Heart: s1/s2 regular rate and rhythm, no chest wall tenderness.
Lungs: no acute respiratory distress. Equal breath sounds bilaterally, no vertebral spine tenderness
Abdomen: Soft, nondistended, no CVA tenderness.
Neuro: alert and oriented. no focal neurological deficits . No saddle anesthesia. 5 out of 5 strength in all extremities
Skin: Small superficial abrasion dorsal aspect of left hand, just proximal to fifth digit
Psychiatric: well kept. interactive and cooperative
Extremities: Full range of movement of bilateral shoulders, elbows, wrist and fingers. Nontender pelvis and hips. Exquisite tenderness and moderate swelling right anterior knee. Soft compartments of right upper leg and
right lower leg. Strong pulses of bilateral feet. Nontender left lower extremity
Course
Orders/Labs/Results
Orders:
Orders
04/01/25 06:31
HYDROmorphone [Dilaudid] 0.5 mg .ROUTE .[facility]
04/01/25 06:33
HYDROmorphone [Dilaudid] 0.5 mg IV NOW STA
Knee, Right 4 or More Views [CR Knee- Right 4 Or More View*] Urgent
Comment: portable please
Reason For Exam: fall, patellar pain and swelling
04/01/25 07:05
Urinalysis Reflex To Culture Urgent
Date Specimen was Collected: 04/01/25
Time Specimen was Collected: 07:00
Urine Microscopic Reflex Cult Urgent
04/01/25 07:47
CT Cervical Spine W/o Iv Contr Urgent
Comment:
Reason For Exam: r sided neck pain after fall
04/01/25 09:24
HYDROmorphone [Dilaudid] 0.5 mg IV NOW STA
04/01/25 10:09
Complete Blood Count/With Diff Urgent
Comprehensive Metabolic Panel Urgent
Abnormal Lab Results
04/01/25 04/01/25
07:05 10:09
RBC 3.86 L 10^6/uL
(4.20-5.40)
Hct 36.4 L %
(37.0-47.0)
MCH 33.2 H pg
(27.0-31.0)
Absolute Monos (auto) 0.8 H 10^3/uL
(0.1-0.6)
Lymphocytes % 14.4 L %
(20.5-51.1)
Monocytes % 9.6 H %
(1.7-9.3)
Chloride 108 H mmol/L
(98-107)
Total Bilirubin 1.5 H mg/dl
(0.2-1.3)
Urine Ketones 1+ A
(Negative)
Ur Occult Blood Reflex 1+ A
(Negative)
Urine RBC 3-6 A /HPF
(0-2)
Urine Albumin (Reflex) 1+ A
(Neg - Trace)
04/01/25 10:09
04/01/25 10:09
Vital Signs
Initial and Last Documented VS:
Initial Vital Signs
BP
190/116
04/01/25 05:51
Last Documented Vital Signs
Temp Pulse Resp BP Pulse Ox
98.1 F 79 20 94/68 99
04/01/25 05:52 04/01/25 05:52 04/01/25 05:52 04/01/25 06:00 04/01/25 06:45
MDM/Problems Addressed
Differential Diagnosis Includes:
Right knee contusion, soft tissue injury right knee, right knee fracture, patellar fracture right knee
MDM/Problems Addressed:
Patient presents with acute pain and swelling of right knee after fall
Chronic conditions affecting care:
Given patient is chronically anticoagulated, she is at increased risk of bleeding and swelling from bleeding
Acute Exacerbation and/or Progression of Chronic Illness:
Patient is acutely hypertensive, this is likely due to severe pain.
*Radiology
Radiology exam reviewed: preliminary read by ED provider (Right knee x-ray reviewed by me. Effusion seen. No definite fracture seen by me) and radiology read reviewed
*Pulse Oximetry
SaO2: 99
Oxygen Mode of Delivery: Room air
Patient hypoxic: no
Comment: 99% on room air
*EKG
Interpreted by ED Provider?: NA
*Radio Machinist Interpretation
Rate: normal
Interpretation: normal
Rhythm: sinus
*Critical Care Note
Total Time (30-74mins, 75-104mins- exclusive of procedures): Not Applicable
Data Reviewed
Review of Other/Old Records Reveals: Labs (Patient's urine grew out Klebsiella in 2023)
Source: patient and spouse
Patient Management
Social determinants of health affecting care: Living situation and Strong social support
Discussion with other providers: Hospitalist
Update Note
Update Note:
Patient complains of right sided neck pain that is worse than her baseline neck pain. Patient does tell me she has chronic neck and back pain, however. There is no midline neck pain. However, we will proceed with a CT C-spine.
ED Attending Note
-
Portions of this chart may have been created with voice recognition software.� Occasional wrong word or��sound alike� substitutions may have occurred due to the inherent limitations of voice recognition software.
Discharge Plan
Departure
Patient Disposition: Admit
Date of Disposition: 04/01/25
Time of Disposition: 09:29
Admit to: Med/Surg
Presentation/result/management discussed w/ accepting MD/DO: Hospitalist
Patient with high blood pressure during this ER visit?: Yes
Discharge Problem:
Closed fracture of right patella, Intractable right knee pain
Prescriptions:
No Action
amiodarone 200 mg Tablet
200 mg PO QPM
metoprolol succinate [Toprol XL] 50 mg Tablet Extended Release 24 Hr
50 mg PO QPM
Xarelto 20 mg Tablet
20 mg PO QPM
loperamide [Imodium] 2 mg Capsule
4 mg PO Q6HPRN PRN (Reason: diarrhea)
amlodipine 2.5 mg Tablet
2.5 mg PO QPM
losartan 100 mg tablet
100 mg PO QPM
Imodium A-D 1 mg/7.5 ml liquid
0.5 dose PO Q6HPRN PRN (Reason: diarrhea)
Patient Comments:
03/31/2025, pt. takes 0.5 the measuring cup.
Referrals:
UNKNOWN - PT DOES,NOT KNOW [Family Provider]
Interventions
Interventions:
*Risk Screen - Suicide Last Done: 04/01/25 06:01
*General Assessment Last Done: 04/01/25 05:58
*Neglect/Abuse Screening Last Done: 04/01/25 05:59
*ED- Fall Risk Assessment Last Done: 04/01/25 05:57
*ED COVID-19 Vaccine History Last Done: 04/01/25 05:57
ED-Musculoskeletal Assessment Last Done: 04/01/25 06:02
Discharge Date and Time
Print Language: NORWEGI[place]
[2025-04-01 07:44] LABS: Urine Character Clear (Clear)
[2025-04-01 08:06] LABS: Urine White Cell 0-2 /HPF (0-5)
[2025-04-01 10:19] LABS: Hematocrit 36.4 % (37.0-47.0); Hemoglobin 12.8 g/dL (12.0-16.0); Mean Corp Hgb Conc. 35.2 g/dL (33.0-37.0); Mean Corpuscular Volume 94.3 fL (81.0-99.0); Nucleated Red Blood Cells % 0 %; Platelet Count 184 10^3/uL (130-400); Red Cell Dist. Width 12.9 % (11.5-14.5)
[2025-04-01 10:42] LABS: ALT (SGPT) 13 U/L (0-35); AST (SGOT) 22 U/L (14-36); Albumin 3.9 g/dl (3.5-5.0); Alkaline Phosphatase 63 U/L (38-126); Blood Urea Nitrogen 12 mg/dl (7-17); Calcium 8.6 mg/dl (8.4-10.2); Carbon Dioxide 24 mmol/L (22-30); Chloride 108 mmol/L (98-107); Estimated Creatinine Clearance 50 ml/min; Glucose 89 mg/dl (70-99); Potassium 3.8 mmol/L (3.5-5.1); Sodium 139 mmol/L (135-145); Total Protein 6.7 g/dl (6.3-8.2); eGFR > 60.00
--- NOTE | 2025-04-01 11:42 | HPS.HSE ---
Family Physician
-
Family Physician: NOT KNOW UNKNOWN - PT DOES
Chief Complaint
-
Fall and right knee pain
History of Present Illness
84 years old female presented to the hospital after she sustained a fall at home. She did not have head trauma. Patient has history of ambulatory dysfunction. She has history of surgeries to her back in the past. She experienced severe knee
pain. X-ray showed injury along patella of the right knee.
Medical History
Past Medical History
Past Medical History: Reports Other (Hypertension, DVT/PE, factor V Leiden mutation, GERD, paroxysmal atrial fibrillation, gait dysfunction)
Past Surgical History: Reports Other (No recent major surgery)
Social History
Tobacco: Non-smoker
Alcohol: None
Drug: None
Personal:
Living: With Family
Employment: Not Employed
Family History
Family History: Not pertinent
Allergies / Home Medications
Allergies reflects when Allergies were last updated in [facility].
Home Medications with original date entered in [facility]
Allergy/Medication List:
Allergies
Allergy/AdvReac Type Severity Reaction Status Date / Time
adrenal cortex (porcine) Allergy Unknown Verified 10/08/24 12:07
fentanyl Allergy Unknown Verified 10/08/24 12:07
hydrocortisone Allergy Unknown Verified 10/08/24 12:07
morphine Allergy Unknown Verified 10/08/24 12:07
levofloxacin (From Levaquin) AdvReac Nausea / Verified 10/08/24 12:07
Vomiting
Home Medications
amiodarone 200 mg tablet 200 mg PO QPM 05/13/24
metoprolol succinate 50 mg tablet,extended release 24 hr (Toprol XL) 50 mg PO QPM 05/13/24
rivaroxaban 20 mg tablet (Xarelto) 20 mg PO QPM 05/13/24
loperamide 2 mg capsule 4 mg PO Q6HPRN PRN diarrhea 10/08/24
Imodium A-D 0.5 dose PO Q6HPRN PRN diarrhea 04/01/25
amlodipine 2.5 mg tablet 2.5 mg PO QPM 04/01/25
losartan 100 mg tablet 100 mg PO QPM 04/01/25
Review of Systems
-
History Source: Patient
A 12 point ROS was completed and negative except as noted: Yes
Constitutional: Denies Fever
EENT: Denies Sore Throat
Respiratory: Denies Cough
Cardiac: Denies Chest Pain
Abdomen/GI: Denies Abdominal Pain
: Reports Incontinence
Musculoskeletal: Reports Joint Pain (Right knee pain)
Skin: Denies Rash
Neurological: Denies Headache or Numbness
Endocrine: Denies Temp Intolerance
Hematologic/Lymphatic: Denies Bruising
Psych: Denies Panic Disorder
Physical Exam
Vital Signs
Vital Signs
Temp Pulse Resp BP Pulse Ox
98.1 F 79 20 94/68 99
04/01/25 05:52 04/01/25 05:52 04/01/25 05:52 04/01/25 06:00 04/01/25 06:45
Physical Exam
General: Well Nourished and No Apparent Distress
HEENT: Moist mucous membranes and Atraumatic
Respiratory: Clear
Cardiac: S1/S2, Regular Rhythm and Murmur
GI: Soft, Non Tender and Non Distended
Genito-urinary: No Villalobos
Musculoskeletal: Other (right knee tenderness )
Neuro: AO x 3 and Nonfocal/grossly intact
Psych: Calm and Intact Judgment/Insight
Laboratory Results
-
04/01/25 10:09
04/01/25 10:09
Laboratory Results
Total Bilirubin 1.5 mg/dl (0.2-1.3) H 04/01/25 10:09
AST 22 U/L (14-36) 04/01/25 10:09
ALT 13 U/L (0-35) 04/01/25 10:09
Alkaline Phosphatase 63 U/L (38-126) 04/01/25 10:09
Impression/Plan
-
84 years old female presented with right knee injury
#Acute right injury
Right knee is very tender. No significant swelling noted.
Discussed with orthopedic doctor, will order MRI of the knee to better understand the extent of the injury and then decide whether surgical or not. For now we will use knee immobilizer.
Patient has significant pain and required multiple doses of intravenous Dilaudid. Will do Tylenol and as needed Dilaudid with the tramadol. Continue Xarelto for now until
Know the extent of her injury after MRI
# Chronic gait dysfunction, history of imbalance although she drives her car. Known to have multiple surgical intervention to her back.
#History of fall. Cervical spine no acute injury. Will order head CT. Patient is on systemic anticoagulation with history of fall.
#Paroxysmal atrial fibrillation, currently sinus rhythm. Will get EKG. Will continue amiodarone and Toprol. Continue Xarelto pending further surgical decisions
#Hypertension
Total time spent to see the patient, examine the patient, review data and lab result, discuss treatment plan with patient, ER doctor, orthopedic doctor, nursing staff around 75 minutes
--- NOTE | 2025-04-01 12:01 | CM ---
CM reviewed chart and met with pt bedside in ED
Lives with her , multistory split level home, 1 [address], first floor half BA, 6 steps to LR/Kitchen, 8 steps to BR, full BA
Independent in ADLs, personal care and ambulation at baseline, Uses cane when she leaves the house as balance is poor
Also has walkers and WC but does not use.
Hx VN ?[facility], no hx SNF
PCP: Roby Epps
Pharmacy: [facility] in [facility] and [facility]
Discharge plan: Anticipate home, watch for needs
--- NOTE | 2025-04-01 13:18 | PTCARENOTE ---
Patient arrived from ED via stretcher @13:18; pulled to bed wish assist x3; immobilizer for knee ordered from [facility] and applied upon its arrival.
[2025-04-01] MEDS: DILAUDID 1 MG IV ×2 (14:00→19:30)
[2025-04-01] MEDS: TYLENOL 1000 MG PO ×2 (16:07→23:14)
[2025-04-01] MEDS: XARELTO 20 MG PO (17:32)
[2025-04-01] MEDS: NORVASC 2.5 MG PO (17:33)
[2025-04-01] MEDS: COZAAR 100 MG PO (17:35)
[2025-04-01] MEDS: TOPROL XL 50 MG PO (17:36)
[2025-04-01] MEDS: PACERONE 200 MG PO (17:42)
[2025-04-01] MEDS: ULTRAM 50 MG PO (23:14)
[2025-04-02] MEDS: ULTRAM 50 MG PO ×3 (05:48→20:42)
[2025-04-02 06:00] VITALS: BMI 25.6
--- NOTE | 2025-04-02 06:09 | W.PN.SURGUPD ---
Surgical Update
Surgical Update
With quadriceps rupture
Would hold Moe starting today
For surgery Wednesday 04/04
GGMD
[2025-04-02 08:00] VITALS: BP 126/67
[2025-04-02] MEDS: TYLENOL 1000 MG PO ×3 (09:27→20:43)
[2025-04-02] MEDS: HEPARIN 5000 UNITS SC ×2 (09:28→20:43)
--- NOTE | 2025-04-02 09:40 | W.PN.HOSP.TC ---
Today's Communication/Plan
-
Add SQ heparin while off Xarelto
c/w Tylenol TID
PRN tramadol/ Dilaudid
Assessment / Plan
Assessment / Plan
Physical Exam
General: Well Nourished and No Apparent Distress
HEENT: Moist mucous membranes and Atraumatic
Respiratory: Clear
Cardiac: S1/S2, Regular Rhythm and Murmur
GI: Soft, Non Tender and Non Distended
Genito-urinary: No Villalobos
Musculoskeletal: Other (right knee tenderness )
Neuro: AO x 3 and Nonfocal/grossly intact
Psych: Calm and Intact Judgment/Insight
84 years old female presented with right knee injury
#Acute right injury/ Acute quadriceps rupture due to fall
Right knee is supported by immobilizer now.
Per ortho: will need surgery, hold Xarelto
c/w Tylenol and as needed Dilaudid with the tramadol. Continue Xarelto for now until
Know the extent of her injury after MRI
# pre op evaluation
Pt denies angina or sob
No hypoxia
Will control Bp, c/w BB
Ordered EKG, LBBB, long QT, she is on amiodarone
Will d/w cardiology, she follows with Dr Brito
# Chronic gait dysfunction, history of imbalance although she drives her car. Known to have multiple surgical intervention to her back.
#History of fall. Cervical spine no acute injury. CT head negative for acute findings.
#Paroxysmal atrial fibrillation, currently sinus rhythm. Will continue amiodarone and Toprol. Held Xarelto for surgery
# Essential hypertension. Continue home medication. Monitor blood pressure.
Total time spent to see the patient, examine the patient, review data and lab result, discuss treatment plan with patient, nursing staff around 55 minutes
Anticipated Discharge: > 48 hours
Subjective/Interval History
-
Date of Service: April 02, 2025
Pain in right knee is better controlled
Objective Data
-
Vital Signs:
Vital Signs
Temp Pulse Resp BP Pulse Ox
97.7 F 60 18 126/67 94
04/02/25 08:00 04/02/25 08:00 04/02/25 08:00 04/02/25 08:00 04/02/25 08:00
I&O
04/01/25 04/02/25 04/03/25
06:59 06:59 06:59
Output Total 250 / 250
Balance -250 / -250
[2025-04-02 16:00] VITALS: BP 133/67
[2025-04-02] MEDS: NORVASC 2.5 MG PO (17:27)
[2025-04-02] MEDS: TOPROL XL 50 MG PO (17:27)
[2025-04-02] MEDS: COZAAR 100 MG PO (17:27)
[2025-04-02] MEDS: PACERONE 200 MG PO (17:27)
[2025-04-02 23:07] VITALS: BP 124/67
[2025-04-03 06:36] LABS: Hematocrit 38.0 % (37.0-47.0); Hemoglobin 13.0 g/dL (12.0-16.0); Mean Corp Hgb Conc. 34.2 g/dL (33.0-37.0); Mean Corpuscular Volume 96.4 fL (81.0-99.0); Platelet Count 183 10^3/uL (130-400); Red Cell Dist. Width 12.8 % (11.5-14.5)
[2025-04-03 06:57] LABS: Blood Urea Nitrogen 17 mg/dl (7-17); Calcium 8.2 mg/dl (8.4-10.2); Carbon Dioxide 25 mmol/L (22-30); Chloride 106 mmol/L (98-107); Estimated Creatinine Clearance 46 ml/min; Glucose 94 mg/dl (70-99); Magnesium 1.9 mg/dl (1.6-2.3); Potassium 4.0 mmol/L (3.5-5.1); Sodium 137 mmol/L (135-145); eGFR > 60.00
[2025-04-03 07:20] VITALS: BP 155/76
--- NOTE | 2025-04-03 09:15 | W.PN.HOSP.TC ---
Today's Communication/Plan
-
.
Assessment / Plan
Assessment / Plan
Physical Exam
General: Well Nourished and No Apparent Distress
HEENT: Moist mucous membranes and Atraumatic
Respiratory: Clear
Cardiac: S1/S2, Regular Rhythm and Murmur
GI: Soft, Non Tender and Non Distended
Genito-urinary: No Villalobos
Musculoskeletal: Other (right knee tenderness )
Neuro: AO x 3 and Nonfocal/grossly intact
Psych: Calm and Intact Judgment/Insight
84 years old female presented with right knee injury
#Acute right injury/ Acute quadriceps rupture due to fall
Right knee is supported by immobilizer now.
Per ortho: will need surgery, hold Xarelto
c/w Tylenol and as needed Dilaudid with the tramadol. Continue Xarelto for now until
Know the extent of her injury after MRI
# pre op evaluation
Pt denies angina or sob
No hypoxia
Will control Bp, c/w BB
Ordered EKG, LBBB, long QT, she is on amiodarone
She follows with Dr Brito
Appreciate cardiology input.
# Constipation
No abdominal pain
Laxatives given.
# Chronic gait dysfunction, history of imbalance although she drives her car. Known to have multiple surgical intervention to her back.
#History of fall. Cervical spine no acute injury. CT head negative for acute findings.
#Paroxysmal atrial fibrillation, currently sinus rhythm. Will continue amiodarone and Toprol. Held Xarelto for surgery
# Essential hypertension. Continue home medication. Monitor blood pressure.
Total time spent to see the patient, examine the patient, review data and lab result, discuss treatment plan with patient, nursing staff around 55 minutes
Anticipated Discharge: > 48 hours
Subjective/Interval History
-
Date of Service: April 03, 2025
No chest pain
No sob
Pain in knee is controlled with pain medicine
Objective Data
-
Labs:
Laboratory Results
04/03/25
06:14
WBC 9.1
Hgb 13.0
Hct 38.0
Plt Count 183
Sodium 137
Potassium 4.0
Chloride 106
Carbon Dioxide 25
BUN 17
Creatinine 0.7
Glucose 94
Calcium 8.2 L
Vital Signs:
Vital Signs
Temp Pulse Resp BP Pulse Ox
98.4 F 61 14 155/76 95
04/03/25 07:20 04/03/25 07:20 04/03/25 07:20 04/03/25 07:20 04/03/25 07:20
I&O
04/02/25 04/03/25 04/04/25
06:59 06:59 06:59
Intake Total 1280 / 1280 480 / 480
Output Total 250 / 250 150 / 150
Balance -250 / -250 1130 / 1130 480 / 480
[2025-04-03] MEDS: ULTRAM 50 MG PO ×2 (09:29→20:33)
[2025-04-03] MEDS: DULCOLAX 10 MG PO (09:29)
[2025-04-03] MEDS: HEPARIN 5000 UNITS SC ×2 (09:30→20:34)
[2025-04-03] MEDS: TYLENOL 1000 MG PO ×3 (09:30→21:47)
--- NOTE | 2025-04-03 12:29 | CON.CAR ---
Consultation
Consultation Request
Date/Time Consultation Requested: 04/02/25
Date/Time Consultation Performed: 04/03/25
Requesting Provider: José Miguel
Performing Provider: Yuriy
Reason for Consultation: pre-op CV risk stratificaiton
Medical History
-
Chief Complaint: mechanical fall
History of Present Illness:
89-year-old woman past medical history of paroxysmal atrial fibrillation presenting after a mechanical fall at home presented for evaluation of knee pain. MRI of the knee identified quadricep rupture and she is planned for surgical repair on 04/04
and we are asked to comment.
Patient tells me she experienced a mechanical fall at home. She was moving a fan at home, turned, and lost her balance. She experienced severe knee pain following this.
Resting comfortably in bed this morning. No cardiac complaints including no chest discomfort or shortness of breath.
PMHx:
paroxysmal atrial fibrillation
Hypertension
DVT/PE
factor V Leiden mutation
GERD
gait dysfunction
Past Medical History
Past Medical History: Other (As above)
Past Surgical History: Other (As above)
Social History
Tobacco: Non-Smoker
Alcohol: Daily
Personal:
Living: With Family
Employment: Retired
Family History
Family History: Reviewed & Not Pertinent
Allergies / Home Medications
Allergy/AdvReac Type Severity Reaction Status Date / Time
fentanyl Allergy Unknown Verified 10/08/24 12:07
hydrocortisone Allergy Unknown Verified 10/08/24 12:07
morphine Allergy Unknown Verified 10/08/24 12:07
levofloxacin (From Levaquin) AdvReac Nausea / Verified 10/08/24 12:07
Vomiting
�Medication �Instructions �Recorded �Confirmed �Type
amiodarone 200 mg tablet 200 mg PO QPM Arrhythmia 05/13/24 04/01/25 History
metoprolol succinate 50 mg 50 mg PO QPM Blood Pressure 05/13/24 04/01/25 History
tablet,extended release 24 hr
(Toprol XL)
rivaroxaban 20 mg tablet (Xarelto) 20 mg PO QPM Blood Clot 05/13/24 04/01/25 History
Prevention/Tx
loperamide 2 mg capsule 4 mg PO Q6HPRN PRN diarrhea 10/08/24 04/01/25 History
Imodium A-D 0.5 dose PO Q6HPRN PRN diarrhea 04/01/25 04/01/25 History
amlodipine 2.5 mg tablet 2.5 mg PO QPM Blood Pressure 04/01/25 04/01/25 History
losartan 100 mg tablet 100 mg PO QPM Blood Pressure 04/01/25 04/01/25 History
Review of Systems
-
History Source: Patient
All other systems: Negative unless noted
Physical Exam
Vital Signs
Temp Pulse Resp BP Pulse Ox
98.4 F 61 14 155/76 95
04/03/25 07:20 04/03/25 07:20 04/03/25 07:20 04/03/25 07:20 04/03/25 07:20
Lab Results
04/03/25 06:14
04/03/25 06:14
Physical Exam
General: Well Developed
HEENT: Normocephalic
Respiratory: Clear and Non Labored Respirations
Cardiac: S1/S2, Regular Rhythm and Murmur (2/6 MARIA ELENA at the base)
Breast: Deferred by me
Musculoskeletal: Edema (R knee)
Skin: Warm and Dry
Neuro: Awake and Alert
Psych: Calm
Impression / Plan
-
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
Echo 08/2024 [place]: EF 60 to 65%, mild aortic stenosis with mean gradient 12 mmHg, mild AI
Assessment:
Quadricep rupture
History of A-fib on on amiodarone
Chronic anticoagulation with Xarelto
Mild aortic stenosis
Hypertension
DVT/PE
Factor V Leiden
Plan:
-Planned for surgical repair of quadricep tendon rupture and we are asked to comment, this is not a high risk procedure
-Currently asymptomatic from a cardiovascular standpoint
-Given her comorbidities above she would be at elevated but not prohibitive risk to proceed with surgery
-No further cardiac testing necessary prior to the OR
-Okay to hold Xarelto and resume when safe from a surgical standpoint
Data Reviewed
-
EKG: Tracing Personally Visualized and interpreted
Radiology: Report Reviewed by me
MRI: Report Reviewed by me
Medical Tests (Nuc Med, Echo etc): Report Reviewed by me
Labs: Labs Reviewed by me
[2025-04-03 15:25] VITALS: BP 126/63
[2025-04-03] MEDS: NORVASC 2.5 MG PO (17:09)
[2025-04-03] MEDS: COZAAR 100 MG PO (17:09)
[2025-04-03] MEDS: PACERONE 200 MG PO (17:10)
[2025-04-03] MEDS: TOPROL XL 50 MG PO (17:10)
[2025-04-03 23:36] VITALS: BP 153/69
[2025-04-04] VITALS (13 sets, daily range): BP systolic 111–182; BP diastolic 54–83
[2025-04-04] MEDS: ULTRAM 50 MG PO ×2 (03:02→20:08)
[2025-04-04 07:05] LABS: Hematocrit 36.3 % (37.0-47.0); Hemoglobin 12.6 g/dL (12.0-16.0); Mean Corp Hgb Conc. 34.7 g/dL (33.0-37.0); Mean Corpuscular Volume 95.3 fL (81.0-99.0); Platelet Count 202 10^3/uL (130-400); Red Cell Dist. Width 12.6 % (11.5-14.5)
[2025-04-04 07:44] LABS: Blood Urea Nitrogen 16 mg/dl (7-17); Calcium 8.5 mg/dl (8.4-10.2); Carbon Dioxide 24 mmol/L (22-30); Chloride 107 mmol/L (98-107); Estimated Creatinine Clearance 46 ml/min; Glucose 87 mg/dl (70-99); Potassium 4.0 mmol/L (3.5-5.1); Sodium 136 mmol/L (135-145); eGFR > 60.00
[2025-04-04] MEDS: TYLENOL PO ×2 (08:43→15:42)
[2025-04-04] MEDS: HEPARIN 5000 UNITS SC ×2 (08:44→22:01)
--- NOTE | 2025-04-04 08:51 | PTCARENOTE ---
Patient is awaiting surgery time, unable to perform nursing swallow screen due to patients NPO status
--- NOTE | 2025-04-04 10:02 | CM ---
Reviewed the chart notes and spoke with the patient at the bedside. The patient anticipates going to the OR today for quadriceps rupture due to fall. CM continues to be available to patient/family and is monitoring medical plan for needs at
discharge.
Plan: Discharge plans will depend on the patient's progress.
--- NOTE | 2025-04-04 11:30 | W.PN.CARDCBS ---
Today's Communication / Plan
-
-Planned for surgical repair of quadricep tendon rupture April 04 in PM.
She remains asymptomatic and compensated from a cardiac standpoint.
Procedure is not a high risk procedure.
She is acceptable cardiac risk and mild to moderate risk based on her comorbidities and the urgent need for surgery.
Continue telemetry perioperatively.
She does not require additional testing prior to surgery. Recent echo shows preserved LV function with mild aortic stenosis.
Anticoagulation is held in anticipation of surgery, resume when okay from a surgical standpoint.
Impression / Plan
-
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
Echo 08/2024 [place]: EF 60 to 65%, mild aortic stenosis with mean gradient 12 mmHg, mild AI
Impression:
Quadricep rupture
History of A-fib on on amiodarone
Chronic anticoagulation with Xarelto
Mild aortic stenosis
Hypertension
DVT/PE
Factor V Leiden
Plan:
-Planned for surgical repair of quadricep tendon rupture April 04 in PM.
She remains asymptomatic and compensated from a cardiac standpoint.
Procedure is not a high risk procedure.
She is acceptable cardiac risk and mild to moderate risk based on her comorbidities and the urgent need for surgery.
Continue telemetry perioperatively.
She does not require additional testing prior to surgery. Recent echo shows preserved LV function with mild aortic stenosis.
Anticoagulation is held in anticipation of surgery, resume when okay from a surgical standpoint.
Outpatient follow-up with Dr. Brito.
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
Subjective
Date of Service: April 04, 2025
Pt seen and examined. No complaints. No chest pain or shortness of breath.
Objective
Labs:
04/04/25 06:38
04/04/25 06:38
Labs
Hgb 12.6 g/dL (12.0-16.0) 04/04/25 06:38
Hct 36.3 % (37.0-47.0) L 04/04/25 06:38
Plt Count 202 10^3/uL (130-400) 04/04/25 06:38
Sodium 136 mmol/L (135-145) 04/04/25 06:38
Potassium 4.0 mmol/L (3.5-5.1) 04/04/25 06:38
BUN 16 mg/dl (7-17) 04/04/25 06:38
Creatinine 0.7 mg/dL (0.6-1.0) 04/04/25 06:38
Glucose 87 mg/dl (70-99) 04/04/25 06:38
Vital Signs and I&O:
Vital Signs
Temp Pulse Resp BP Pulse Ox
98.7 F 62 20 160/78 95
04/03/25 23:36 04/04/25 08:52 04/04/25 08:52 04/04/25 08:52 04/04/25 08:52
Vital Signs
Temp Pulse Resp BP Pulse Ox
98.7 F 62 20 160/78 95
04/03/25 23:36 04/04/25 08:52 04/04/25 08:52 04/04/25 08:52 04/04/25 08:52
Intake & Output
04/02/25 04/03/25 04/04/25 04/05/25
06:59 06:59 06:59 06:59
Intake Total 1280 / 1280 720 / 720 0 / 0
Output Total 250 / 250 150 / 150 350 / 350
Balance -250 / -250 1130 / 1130 370 / 370 0 / 0
Physical Exam
Physical Exam
General: No acute distress, AAOX3
Neck: Negative JVD
Heart: Regular, Negative S3 positive S1/S2, Negative S4, No murmur
Lungs: CTA b/l, negative wheezes/rales/rhonchi
Abd: Positive BS, NT/ND, neg rebound/rigidity/guarding
Ext: Negative cyanosis/clubbing/edema
Neuro: nonfocal
[2025-04-04] MEDS: NORMOSOL-R/PLASMALYTE-A 1000 IV (12:13)
[2025-04-04] MEDS: DILAUDID 1 MG IV (13:39)
--- NOTE | 2025-04-04 14:36 | W.PN.HOSP.TC ---
Today's Communication/Plan
-
Medically cleared for OR today.
P afib, currently in NSR. Continue monitoring
Off Xarelto anticipating intervention.
Assessment / Plan
Assessment / Plan
Physical Exam
General: Well Nourished and No Apparent Distress
HEENT: Moist mucous membranes and Atraumatic
Respiratory: Clear
Cardiac: S1/S2, Regular Rhythm and Murmur
GI: Soft, Non Tender and Non Distended
Genito-urinary: No Villalobos
Musculoskeletal: Other (right knee tenderness )
Neuro: AO x 3 and Nonfocal/grossly intact
Psych: Calm and Intact Judgment/Insight
84 years old female presented with right knee injury
#Acute quadriceps rupture due to fall
Right knee is supported by immobilizer now.
Per ortho: will need surgery, hold Xarelto
c/w Tylenol and as needed Dilaudid with the tramadol. Continue Xarelto for now until
Know the extent of her injury after MRI
# pre op evaluation
Pt denies angina or sob
No hypoxia
Will control Bp, c/w BB
Ordered EKG, LBBB, long QT, she is on amiodarone
She follows with Dr Brito
Appreciate cardiology input.
# Constipation
No abdominal pain
Laxatives given.
# Chronic gait dysfunction, history of imbalance although she drives her car. Known to have multiple surgical intervention to her back.
#History of fall. Cervical spine no acute injury. CT head negative for acute findings.
#Paroxysmal atrial fibrillation, currently sinus rhythm. Will continue amiodarone and Toprol. Held Xarelto for surgery
# Essential hypertension. Continue home medication. Monitor blood pressure.
Total time spent to see the patient, examine the patient, review data and lab result, discuss treatment plan with patient, nursing staff around 55 minutes
Anticipated Discharge: 24 - 48 hours
Subjective/Interval History
-
Date of Service: April 04, 2025
Objective Data
-
Labs:
Laboratory Results
04/04/25
06:38
WBC 7.3
Hgb 12.6
Hct 36.3 L
Plt Count 202
Sodium 136
Potassium 4.0
Chloride 107
Carbon Dioxide 24
BUN 16
Creatinine 0.7
Glucose 87
Calcium 8.5
Vital Signs:
Vital Signs
Temp Pulse Resp BP Pulse Ox
98.5 F 57 20 158/77 95
04/04/25 12:21 04/04/25 12:21 04/04/25 12:21 04/04/25 12:23 04/04/25 12:21
I&O
04/03/25 04/04/25 04/05/25
06:59 06:59 06:59
Intake Total 1280 / 1280 720 / 720 0 / 0
Output Total 150 / 150 350 / 350
Balance 1130 / 1130 370 / 370 0 / 0
[2025-04-04] MEDS: DILAUDID 0.5 MG IV (18:18)
[2025-04-04] MEDS: PACERONE 200 MG PO (20:07)
[2025-04-04] MEDS: TOPROL XL 50 MG PO (20:07)
[2025-04-04] MEDS: COZAAR 100 MG PO (20:07)
[2025-04-04] MEDS: NORVASC 2.5 MG PO (20:31)
--- NOTE | 2025-04-04 21:03 | PTCARENOTE ---
Pt from PACU, assessed dressing @ bedside with GRAIN BROKER AND MARKET OPERATOR, CDI immobilizer in place. P reports pain 71/0 in RLE burning and aching reposition for comfort, pillows placed per order, ice pack in place. Pt eating dinner with family @ bedside callbell
within reach VSS.
[2025-04-04] MEDS: TYLENOL 1000 MG PO (22:01)
[2025-04-04] MEDS: ANCEF 5 IV (23:22)
[2025-04-05] MEDS: DILAUDID 1 MG IV ×2 (01:41→17:53)
[2025-04-05] MEDS: NORMOSOL-R/PLASMALYTE-A 1000 IV (02:13)
[2025-04-05 03:15] VITALS: BP 126/58
[2025-04-05 07:25] VITALS: BP 144/69
[2025-04-05] MEDS: ULTRAM 50 MG PO ×3 (08:01→22:08)
[2025-04-05] MEDS: TYLENOL 1000 MG PO ×3 (08:02→22:03)
[2025-04-05] MEDS: COLACE 100 MG PO ×2 (08:02→20:03)
[2025-04-05] MEDS: HEPARIN 5000 UNITS SC (08:02)
[2025-04-05] MEDS: ANCEF 5 IV (08:03)
--- NOTE | 2025-04-05 08:12 | W.PN.UPDATE ---
Update Note
Progress Note Update
Comfortable
OK to place Full weight R LE but only in Knee Immobilizer
OK to resume anticoagulants today
Definitely needs rehab stay
Have F/U with me in about 10-14 days as outp
GGMD
--- NOTE | 2025-04-05 08:36 | W.PN.CARDCBS ---
Addendum entered and electronically signed by Karlee Greene PA-C 04/05/25 11:19:
of note, CrCl calculated to be 54. will need to follow closely as OP as dose should be decreased if CrCl falls below 50.
Addendum entered and electronically signed by Yousif Rodrigez DO 04/05/25 10:14:
I saw and examined the patient.
The Shelf Filler's note was reviewed and I agree with the note.
Comment:
Cont post op care
Compensated cv status
Xarelto to be resumed tonight
Will arrange outpt cardiac follow up with Dr Brito
Please recall if needed.
Original Note:
Today's Communication / Plan
-
continue post op care
xarelto to resume tonight
will arrange OP cardiac follow up
will sign off
Impression / Plan
-
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
Echo 08/2024 [place]: EF 60 to 65%, mild aortic stenosis with mean gradient 12 mmHg, mild AI
Impression:
Quadricep tendon rupture s/p repair 04/04/25
History of A-fib on on amiodarone
Chronic anticoagulation with Xarelto
Mild aortic stenosis
Hypertension
DVT/PE
Factor V Leiden
Plan:
- Patient with right quadricep tendon rupture status post surgical repair 04/04/2025
- Reviewed notes by orthopedics with plan to resume outpatient Xarelto today
- Blood pressure/heart rate stable. no CP/SOB
- Continue outpatient antihypertensive regimen of Norvasc, Toprol, Cozaar
- Not on tele. Continue amiodarone
- PT/OT. Will need rehab stay
- Outpatient follow-up with Dr. Brito.
- will plan to sign off
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
Subjective
Date of Service: April 05, 2025
reports RLE pain. no CP/ SOB
Objective
Labs:
04/04/25 06:38
04/04/25 06:38
Labs
Hgb 12.6 g/dL (12.0-16.0) 04/04/25 06:38
Hct 36.3 % (37.0-47.0) L 04/04/25 06:38
Plt Count 202 10^3/uL (130-400) 04/04/25 06:38
Sodium 136 mmol/L (135-145) 04/04/25 06:38
Potassium 4.0 mmol/L (3.5-5.1) 04/04/25 06:38
BUN 16 mg/dl (7-17) 04/04/25 06:38
Creatinine 0.7 mg/dL (0.6-1.0) 04/04/25 06:38
Glucose 87 mg/dl (70-99) 04/04/25 06:38
Vital Signs and I&O:
Vital Signs
Temp Pulse Resp BP Pulse Ox
98.0 F 60 16 144/69 96
04/05/25 07:25 04/05/25 07:25 04/05/25 07:25 04/05/25 07:25 04/05/25 07:25
Vital Signs
Temp Pulse Resp BP Pulse Ox
98.0 F 60 16 144/69 96
04/05/25 07:25 04/05/25 07:25 04/05/25 07:25 04/05/25 07:25 04/05/25 07:25
Intake & Output
04/03/25 04/04/25 04/05/25 04/06/25
07:59 07:59 07:59 07:59
Intake Total 1280 / 1280 720 / 720 1080 / 1080
Output Total 150 / 150 350 / 350
Balance 1130 / 1130 370 / 370 1080 / 1080
Physical Exam
Physical Exam
GEN: No distress, awake, alert, oriented x3
HEENT: supple, anicteric, mmm, eomi
LUNGS: CTA B/L, no wheezes/rales
CV: Reg, S1/S2, 1/6 syst LSB
ABD: soft, BS+, NT/ND
EXT: No cyanosis, clubbing, ankle edema
NEURO: Gross non-focal
SKIN: Warm, pink, dry. No rash
[2025-04-05 11:25] VITALS: BP 109/56
[2025-04-05] MEDS: NORMOSOL-R/PLASMALYTE-A IV ×2 (13:36→17:36)
[2025-04-05 14:00] VITALS: BP 130/64; BP 149/76; PULSE 68; PULSE 69; O2SAT 96
--- NOTE | 2025-04-05 14:45 | W.PN.HOSP.TC ---
Today's Communication/Plan
-
PT assessment
Resume anticoagulation
Cardiovascular status remains stable
Discharge planning SNF versus acute rehab
Assessment / Plan
Assessment / Plan
Physical Exam
General: Well Nourished and No Apparent Distress
HEENT: Moist mucous membranes and Atraumatic
Respiratory: Clear
Cardiac: S1/S2, Regular Rhythm and Murmur
GI: Soft, Non Tender and Non Distended
Genito-urinary: No Villalobos
Musculoskeletal: Other (right knee tenderness )
Neuro: AO x 3 and Nonfocal/grossly intact
Psych: Calm and Intact Judgment/Insight
84 years old female presented with right knee injury
#Acute quadriceps rupture due to fall
Status post quadriceps repair on 04/04
Initiate physical therapy
Cleared to resume anticoagulation with Xarelto
# pre op evaluation
Pt denies angina or sob
No hypoxia
Will control Bp, c/w BB
Ordered EKG, LBBB, long QT, she is on amiodarone
She follows with Dr Brito
Appreciate cardiology input.
# Constipation
No abdominal pain
Laxatives given.
# Chronic gait dysfunction, history of imbalance although she drives her car. Known to have multiple surgical intervention to her back.
#History of fall. Cervical spine no acute injury. CT head negative for acute findings.
#Paroxysmal atrial fibrillation, currently sinus rhythm. Will continue amiodarone and Toprol. Held Xarelto for surgery
# Essential hypertension. Continue home medication. Monitor blood pressure.
Total time spent to see the patient, examine the patient, review data and lab result, discuss treatment plan with patient, nursing staff around 55 minutes
Anticipated Discharge: 24 - 48 hours
Subjective/Interval History
-
Date of Service: April 05, 2025
Objective Data
-
Vital Signs:
Vital Signs
Temp Pulse Resp BP Pulse Ox
98.0 F 66 16 109/56 94
04/05/25 11:25 04/05/25 11:25 04/05/25 11:25 04/05/25 11:25 04/05/25 11:25
I&O
04/04/25 04/05/25 04/06/25
06:59 06:59 06:59
Intake Total 720 / 720 1080 / 1080 210 / 210
Output Total 350 / 350
Balance 370 / 370 1080 / 1080 210 / 210
Physical Exam
-
General: Well Developed and No Apparent Distress
HEENT: Normocephalic, Atraumatic and Moist Mucous Membranes
Respiratory: Clear to Auscultation
Cardiac: Regular Rhythm and S1/S2; Negative Murmur, Rub or Gallop
GI: Soft, Nontender, Nondistended and Normal Bowel Sounds; Negative Organomegaly
Rectal: Deferred by Provider
Musculoskeletal: No Clubbing, No Cyanosis and No Edema
Skin: Negative Rash
Neuro: Nonfocal/Grossly Intact
[2025-04-05 15:25] VITALS: BP 138/69
[2025-04-05] MEDS: TOPROL XL 50 MG PO (17:36)
[2025-04-05] MEDS: COZAAR 100 MG PO (17:36)
[2025-04-05] MEDS: XARELTO 20 MG PO (17:37)
[2025-04-05] MEDS: PACERONE 200 MG PO (17:37)
[2025-04-05] MEDS: NORVASC 2.5 MG PO (17:37)
[2025-04-05 23:15] VITALS: BP 132/69
[2025-04-06] MEDS: ULTRAM 50 MG PO (04:58)
[2025-04-06 07:25] VITALS: BP 136/68
[2025-04-06] MEDS: TYLENOL 1000 MG PO ×2 (08:37→16:20)
[2025-04-06] MEDS: COLACE PO (08:44)
--- NOTE | 2025-04-06 11:31 | PTCARENOTE ---
Patient c/o having to void frequently. Patient bladder scanned for 22ml & 39ml.
[2025-04-06] MEDS: ROXICODONE 10 MG PO (11:38)
[2025-04-06 12:21] VITALS: BP 150/72; PULSE 65; O2SAT 98
[2025-04-06 12:28] VITALS: BP 150/72; PULSE 65; O2SAT 98
--- NOTE | 2025-04-06 14:27 | CM ---
Received message that [facility] may be willing to accept patient if she improves in therapy. Therapy recommendation today notes that recommendation is Acute vs SNF. No discharge date as yet. Discharge POC: TBD based on further therapy evals.
--- NOTE | 2025-04-06 14:56 | W.DCSUMMARY ---
Discharge Summary
Discharge Data
Date of Admission: 04/01/25
Date of Discharge: 04/06/25
-
Pending Results: No
Hospital Course
84 years old female presented after mechanical fall and found to have a right quadricep rupture.
Patient underwent successful repair on 04/04.
Postoperatively patient initiated with physical therapy.
Analgesic regimen has been adjusted
Plan is for discharge to acute rehab for further rehabilitation
Paroxysmal atrial fibrillation.
Patient presents to be hemodynamically stable.
Remains in sinus rhythm.
Seen in consultation by cardiology.
Has been continued preadmission regimen including amiodarone and Toprol.
Thromboembolic prophylaxis with Xarelto had been resumed postoperatively.
Discharge Plan
-
Patient Disposition: Acute Rehab Facility
Discharge Diagnosis/Procedures: Quadriceps rupture
Condition: Good
Diet: Regular
Referrals:
Kai Brito MD [Active, Cardiology] - 06/08/25 11:20 am
Referral Note: You have a cardiology follow up appointment at the [facility] office. Please call with questions.
UNKNOWN - PT DOES,NOT KNOW [Family Provider]
Prescriptions:
New
polyethylene glycol 3350 17 gram Powder In Packet
17 g PO DAILYPRN PRN (Reason: constipation) Qty: 30 0RF
acetaminophen [Tylenol Extra Strength] 500 mg Tablet
1,000 mg PO TID Qty: 90 0RF
docusate sodium 100 mg Capsule
100 mg PO BID PRN (Reason: constipation) Qty: 30 0RF
oxycodone 5 mg Tablet
5 mg PO Q4HPRN PRN (Reason: moderate pain) Qty: 15 0RF
oxycodone 10 mg Tablet
10 mg PO Q4HPRN PRN (Reason: severe pain) Qty: 15 0RF
Continued
amiodarone 200 mg Tablet
200 mg PO QPM
metoprolol succinate [Toprol XL] 50 mg Tablet Extended Release 24 Hr
50 mg PO QPM
Xarelto 20 mg Tablet
20 mg PO QPM
loperamide 2 mg Capsule
4 mg PO Q6HPRN PRN (Reason: diarrhea)
amlodipine 2.5 mg Tablet
2.5 mg PO QPM
losartan 100 mg tablet
100 mg PO QPM
Imodium A-D 1 mg/7.5 ml liquid
0.5 dose PO Q6HPRN PRN (Reason: diarrhea)
Patient Comments:
03/31/2025, pt. takes 0.5 the measuring cup.
Discharge Orders:
Discharge Patient (As Directed); Ordered 04/06/25
Ordered By: Alberto Mercer
Discharge Date and Time
Print Language: [place]
[2025-04-06 15:10] VITALS: BP 119/66
--- NOTE | 2025-04-06 15:10 | CM ---
Patient seen and updated that [facility] had accepted patient and she could go with discharge order. Physician updated and IMM completed. Patient called and provided update. Nurse and unit controller updated. Patient for transfer to [facility] today. CM
will continue to follow for discharge planning needs.
Plan; [facility]
[2025-04-06] MEDS: ROXICODONE 5 MG PO (16:26)
--- NOTE | 2025-04-06 16:45 | PTCARENOTE ---
Patient transferred to [facility]. Patient was medicated with Roxicodone 5mg before tranfer for 6/10 right knee pain. Patient belongings sent with her: including, phone, special order jeweler, reddy and books.
== END 2025-04-06 17:00 | DRG 501 ==
LOC: 2 SOUTH 11:55
PROVIDERS: ADMITTING PHYSICIAN Internal Medicine; ATTENDING PHYSICIAN Internal Medicine; CONSULT PHYSICIAN Orthopaedic Surgery Hand Surgery; EMERGENCY PHYSICIAN Emergency Medicine; OTHER PHYSICIAN Internal Medicine Cardiovascular Disease
PROC: 0LQL0ZZ Repair Right Upper Leg Tendon, Open Approach (ICD-10-PCS; 2025-04-04)
DX: S76.111A Strain of right quadriceps muscle, fascia and tendon, initial encounter (principal); D68.51 Activated protein C resistance; S82.001A Unspecified fracture of right patella, initial encounter for closed fracture; W01.0XXA Fall on same level from slipping, tripping and stumbling without subsequent striking against object, initial encounter; I48.0 Paroxysmal atrial fibrillation; Z88.5 Allergy status to narcotic agent; K58.9 Irritable bowel syndrome, unspecified; I10 Essential (primary) hypertension; K21.9 Gastro-esophageal reflux disease without esophagitis; Z79.899 Other long term (current) drug therapy; Z79.01 Long term (current) use of anticoagulants
CPT/HCPCS: 70450; 72125; 73564; 73721; 80048; 80053; 81003; 81015; 83735; 85025; 85027; 93005; 96374; 96376; 97116; 97163; 97167; 97530; 97535; 99285

== ENCOUNTER 2025-05-24 08:24 | Emergency (ER) | payer MEDICARE, SELFPAY ==
[2025-05-24 08:32] VITALS: BP 107/70
--- NOTE | 2025-05-24 09:05 | ED.GENMED ---
History of Present Illness
<Renae Grewal MD, Resident - Last Filed: 05/24/25 12:37>
General
Chief Complaint: DVT/Possible Blood Clot
Source: patient
Exam Limitations: none
Time Seen by Provider: 05/24/25 09:01
Nursing documentation reviewed up to this point in time: agreed with
History of Present Illness
History of Present Illness:
85-year-old female with a past medical history of atrial fibrillation, factor V deficiency, recent right distal quadriceps repair comes to the ED due to right lower extremity swelling, tenderness and erythema. Patient was rehabbing from her surgery
and had her brace taken off on Friday but developed pain, swelling and redness of her right knee yesterday. She does not report any shortness of breath, chest pain, fever or chills at this time. She was recommended to come to the ED to get
ultrasound of her knee by Dr. Hernandez who did her surgery.
Past History
<Renae Grewal MD, Resident - Last Filed: 05/24/25 12:37>
Past History
ED Past Medical History: Arrthythmia, GERD and Other (Factor IV Leiden deficiency, DVT, PE, ED, diverticulosis, IBS)
ED Past Surgical History: Appendectomy, Gynecological, Orthopedic, Tonsilectomy and Other
Social History
Tobacco: Non-smoker
Alcohol: Daily
Drug: None
Personal:
Living: with family
Employment: Retired
Family History
Family History: Other
Review of Systems
<Renae Grewal MD, Resident - Last Filed: 05/24/25 12:37>
Review of Systems
Allergies reviewed?: Yes
All Other Systems: ROS reviewed and negative except as documented in HPI and ROS
Constitutional: Reports no symptoms
EENT: Reports no symptoms
Respiratory: Reports no symptoms
Cardiac: Reports no symptoms
ABD/GI: Reports no symptoms
: Reports no symptoms
Musculoskeletal: Reports joint pain (Right knee) and joint swelling (Right Knee)
Skin: Reports other (Erythema right knee)
Neurological: Reports no symptoms
Endocrine: Reports no symptoms
Hematologic/Lymphatic: Reports no symptoms
Psychiatric: Reports no symptoms
Phy Exam
<Renae Grewal MD, Resident - Last Filed: 05/24/25 12:37>
General Physical Exam
General Presentation: well appearing and no apparent distress
General Skin: warm and dry
General Habitus: normal
General Mental: alert
General Hydration: appears well hydrated
Cardiovascular Exam
Cardiovascular Exam: regular rate/rhythm and no murmur
Pulmonary Exam
Pulmonary Exam: lungs clear, no respiratory distress, no crackles and no wheezing
Gastrointestinal Exam
Gastrointestinal Exam: normal bowel sounds, non tender, soft and non distended
Musculoskeletal Exam
Musculoskeletal Exam: other (Right knee tenderness, erythema and mild edema that extends down to lower leg)
Skin Exam
Skin Exam: normal color and warm/dry
Course
<Renae Grewal MD, Resident - Last Filed: 05/24/25 12:37>
Orders/Labs/Results
Orders:
Orders
05/24/25 08:37
Periph Venous Lwr Ext Rt US [US Periph Venous LOWER Ext RT] Urgent
Comment: post op
Reason For Exam: swelling, pain
Vital Signs
Initial and Last Documented VS:
Initial Vital Signs
Temp Pulse Resp BP Pulse Ox
36.3 C 58 18 107/70 98
05/24/25 08:32 05/24/25 08:32 05/24/25 08:32 05/24/25 08:32 05/24/25 08:32
Last Documented Vital Signs
Temp Pulse Resp BP Pulse Ox
36.3 C 58 18 107/70 98
05/24/25 08:32 05/24/25 08:32 05/24/25 08:32 05/24/25 08:32 05/24/25 09:05
<Deep Carnes, - Last Filed: 05/24/25 12:37>
Orders/Labs/Results
Orders:
Orders
05/24/25 08:37
Periph Venous Lwr Ext Rt US [US Periph Venous LOWER Ext RT] Urgent
Comment: post op
Reason For Exam: swelling, pain
Vital Signs
Initial and Last Documented VS:
Initial Vital Signs
Temp Pulse Resp BP Pulse Ox
36.3 C 58 18 107/70 98
05/24/25 08:32 05/24/25 08:32 05/24/25 08:32 05/24/25 08:32 05/24/25 08:32
Last Documented Vital Signs
Temp Pulse Resp BP Pulse Ox
36.3 C 58 18 107/70 98
05/24/25 08:32 05/24/25 08:32 05/24/25 08:32 05/24/25 08:32 05/24/25 09:05
<Renae Grewal MD, Resident - Last Filed: 05/24/25 12:37>
MDM/Problems Addressed
Differential Diagnosis Includes:
Right Knee DVT, Right Knee Cellulitis, Right Knee Post Surgical Inflammation
MDM/Problems Addressed:
85-year-old female with a past medical history of factor V deficiency, A-fib, and recent right quadriceps repair comes to the ED due to right knee erythema, swelling, and tenderness.
Possibility of DVT, especially with patient's history of factor V, will await results of ultrasound
Patient is on Xarelto
Knee erythema, swelling, tenderness could just be postsurgery inflammation versus cellulitis.
Will contact Dr. Hernandez with results of ultrasound.
Contacted Dr. Tovar for US results, he states study is negative for DVT.
Messaged Dr. Hernandez on [employer] regarding results
Chronic conditions affecting care: Arrhythmia (AFib) and Other (Factor V Deficiency, Right Quadriceps Repair)
<Renae Grewal MD, Resident - Last Filed: 05/24/25 12:37>
*Pulse Oximetry
SaO2: 98
Oxygen Mode of Delivery: Room air
Patient hypoxic: no
*Critical Care Note
Total Time (30-74mins, 75-104mins- exclusive of procedures): Not Applicable
ED Attending Note
<Renae Grewal MD, Resident - Last Filed: 05/24/25 12:37>
-
Portions of this chart may have been created with voice recognition software.� Occasional wrong word or��sound alike� substitutions may have occurred due to the inherent limitations of voice recognition software.
<Deep Carnes DO - Last Filed: 05/24/25 12:37>
ED Attending Note
Patient seen and examined by attending physician: Yes
I performed the substantive portion of visit, reviewed & personally made and approve the management plan that is documented in note by myself or KAILEE.: Yes
ED Attending Note:
I evaluated the patient at bedside. The patient does have some diffuse mild swelling but no evidence of DVT. She is compliant with taking Xarelto. No clear evidence of infection based on physical examination. Recommended to have the patient keep
the leg elevated is much as possible.
Discharge Plan
Departure
Patient Disposition: Home (Routine Discharge)
Date of Disposition: 05/24/25
Time of Disposition: 12:36
Patient with high blood pressure during this ER visit?: No
Condition: Good
Covid-19: Not Applicable
Discharge Problem:
Inflammation of joint of right knee, Factor V Leiden mutation
Instructions: Knee pain - ED discharge instructions
Prescriptions:
No Action
amiodarone 200 mg Tablet
200 mg PO QPM
loperamide 2 mg Capsule
4 mg PO Q6HPRN PRN (Reason: diarrhea)
Imodium A-D 1 mg/7.5 ml liquid
0.5 dose PO Q6HPRN PRN (Reason: diarrhea)
Patient Comments:
03/31/2025, pt. takes 0.5 the measuring cup.
polyethylene glycol 3350 17 gram Powder In Packet
17 g PO DAILYPRN PRN (Reason: constipation) Qty: 30 0RF
docusate sodium 100 mg Capsule
100 mg PO BID PRN (Reason: constipation) Qty: 30 0RF
pantoprazole 20 mg Tablet,Delayed Release (Dr/Ec)
20 mg PO DAILY 30 Days Qty: 30 0RF
metoprolol succinate 25 mg Tablet Extended Release 24 Hr
25 mg PO DAILY@1000 30 Days Qty: 30 0RF
multivitamin with folic acid [Tab-A-Darion] 400 mcg Tablet
1 tab PO DAILY 30 Days Qty: 30 0RF
acetaminophen 325 mg Tablet
650 mg PO Q4HPRN PRN (Reason: mild pain or fever) 30 Days Qty: 100 0RF
cholecalciferol (vitamin D3) 25 mcg (1,000 unit) Tablet
25 mcg PO DAILY 30 Days Qty: 30 0RF
losartan 25 mg Tablet
25 mg PO DAILY@1999 30 Days Qty: 30 0RF
Xarelto 15 mg Tablet
15 mg PO QPM 30 Days Qty: 30 0RF
Referrals:
Roby Epps MD [Family Provider, Internal Medicine] - Call in 1-3 days for appt
Referral Note: Follow up with your primary care physician for further management
Sebastian Hernandez MD [Active, Orthopedics] - Call in 1-3 days for appt
Referral Note: Continue following up with Dr. Hernandez for further management of right knee
Activity Restrictions/Additional Instructions:
As discussed you should follow-up with your primary care physician for further management.
As discussed you can use ice packs to reduce the swelling and inflammation as needed along with over the counter pain relief medication (Tyelnol)
You should also follow-up with Dr. Hernandez for further management of your right knee inflammation.
Please return to the ED if you have any shortness of breath, difficulty breathing, fever, chills, or any worsening of lower right extremity pain.
Interventions
Interventions:
*Risk Screen - Suicide Last Done: 05/24/25 08:32
*General Assessment Last Done: 05/24/25 08:32
*Neglect/Abuse Screening Last Done: 05/24/25 10:30
ED- Cardiac Assessment Last Done: 05/24/25 10:30
ED- Pulmonary Assessment Last Done: 05/24/25 10:30
ED-Peripheral Vascular Assessment Last Done: 05/24/25 10:30
ED-Skin Assessment Last Done: 05/24/25 10:30
Discharge Date and Time
Print Language: [place] CITIZ[place]
== END 2025-05-24 12:52 | disposition home or self-care (01) ==
LOC: EMR 08:24
PROVIDERS: EMERGENCY PHYSICIAN Emergency Medicine; FAMILY PHYSICIAN Internal Medicine
DX: M17.11 Unilateral primary osteoarthritis, right knee (principal); D68.51 Activated protein C resistance; Z86.718 Personal history of other venous thrombosis and embolism; Z79.01 Long term (current) use of anticoagulants; Z90.49 Acquired absence of other specified parts of digestive tract; Z98.890 Other specified postprocedural states
CPT/HCPCS: 99284; 93971